=== PATIENT | female | born 1935 | race Caucasian/White ===

== ENCOUNTER 2018-07-06 23:35 | Inpatient (IN) | payer MEDICAID, MEDICARE ==
--- NOTE | 2018-07-06 23:46 | ED Physician Chart ---
ED Chief Complaint/HPI - Patient Information Date Seen:: 07/06/18 Time Seen:: 23:42 Chief Complaint:: coffee ground emesis History of Present Illness:: this is an [age] yr old female sent from the [place] [facility] for evaluation and treatment for a possible upper gi bleed. she has had several bouts of coffee ground emesis today. she is currently Historian:: EMS, Medical Records Review:: Nurse's Note Reviewed ED Review of Systems - Review of Systems General/Constitutional: No fever, No chills, No weight loss, No weakness, No diaphoresis, No edema, No loss of appetite, Other (this patient is not able to give a review of systems) Skin: No skin lesions, No rash, No bruising Head: No headache, No light-headedness Eyes: No loss of vision, No pain, No diplopia ENT: No earache, No nasal drainage, No sore throat, No tinnitus Neck: No neck pain, No swelling, No thyromegaly, No stiffness, No mass noted Cardio Vascular: No chest pain, No palpitations, No PND, No orthopnea, No edema Pulmonary: No SOB, No cough, No sputum, No wheezing GI: No nausea, No vomiting, No diarrhea, No pain, No melena, No hematochezia, No constipation, No hematemesis G/U: No dysuria, No frequency, No hematuria Musculoskeletal: No bone or joint pain, No back pain, No muscle pain Endocrine: No polyuria, No polydipsia Psychiatric: No prior psych history, No depression, No anxiety, No suicidal ideation Hematopoietic: No bruising, No lymphadenopathy Allergic/Immuno: No urticaria, No angioedema Neurological: No syncope, No focal symptoms, No weakness, No paresthesia, No headache, No seizure, No dizziness, No confusion, No vertigo ED Past Medical History - Past Medical History Obtainable: Yes Past Medical History: HTN, CHF, CVA/TIA, Seizures, Other (right breast cancer) Family History: None Social History: Non Smoker, No Alcohol, No Drug Use, Care Facility Surgical History: PEG/GTube, other (right breast surgery, ) Psychiatricy History: Dementia Family Medical History - Family Member Mother History Unknown: Yes ED Physical Exam - Physical Examination General/Constitutional: Awake, Well-developed, well-nourished, Alert, No distress, GCS 15, Non-toxic appearing, Ambulatory Other Gen/Cons comments:: unable to speak because of the trachtube on the ventilator. Head: Atraumatic Eyes: Lids, conjuctiva normal, PERRL, EOMI Skin: Nl inspection, No rash, No skin lesions, No ecchymosis, Well hydrated, No lymphadenopathy ENMT: External ears, nose nl, Nasal exam nl, Lips, teeth, gums nl Neck: Nontender, Full ROM w/o pain, No JVD, No nuchal rigidity, No bruit, No mass, No stridor Other Neck comments:: trach is functioning normally and hooked to the ventilator Respiratory: Nl effort/Exclusion, Clear to Auscultation, No Wheeze/Rhonchi/Rales Cardio Vascular: RRR, No murmur, gallop, rubs, NL S1 S2 Other Cardio Vascular comments:: right breast was removed GI: No tenderness/rebounding/guarding, No organomegaly, No hernia (there is a ventral and umbilical hernia noted.), Normal BS's, Nondistended (the abdomen is distended.), No mass/bruits, No McBurney tenderness : No CVA tenderness Extremities: No tenderness or effusion, Full ROM, normal strength in all extremities, No edema, Normal digits & nails Neuro/Psych: Alert/oriented, DTR's symmetric, Normal sensory exam, Normal motor strength, Judgement/insight normal, Mood normal, Normal gait, No focal deficits Other Neuro/Psych comments:: there is some mild spastic paralysis of the lower extremities. she is confused and fighting at times. Misc: Normal back, No paraspinal tenderness ED Labs/Radiology/EKG Results - Lab Results Results: Abnormal Lab Results 07/06/18 07/06/18 07/06/18 00:20 00:20 00:20 WBC 7.9 RBC 2.98 L Hgb 9.9 L Hct 30.1 L MCV 101.0 H MCH 33.2 H MCHC Differential 32.8 RDW 19.7 Plt Count 388 MPV 8.0 Neutrophils % 89.5 H Lymphocytes % 6.6 L Monocytes % 3.6 Eosinophils % 0.2 Basophils % 0.1 Neutrophils (Manual) 89.5 H Lymphocytes 6.6 L Monocytes 3.6 Eosinophils 0.2 PT 10.2 INR 0.98 PTT (Actin FS) 30.8 Sodium Potassium Chloride Carbon Dioxide Anion Gap BUN Creatinine Est GFR ( Amer) Est GFR (Non-Af Amer) BUN/Creatinine Ratio Glucose Calcium Total Bilirubin AST ALT Alkaline Phosphatase Troponin I Total Protein Albumin Globulin Albumin/Globulin Ratio Triglycerides 133 Cholesterol 122 LDL Cholesterol Direct 53 L HDL Cholesterol 42 TSH Urine Source Urine Color Urine Clarity Urine pH Ur Specific [place] Urine Protein Urine Glucose (UA) Urine Ketones Urine Blood Urine Nitrate Urine Bilirubin Urine Urobilinogen Ur Leukocyte Esterase 07/06/18 07/06/18 07/06/18 00:20 00:20 00:20 WBC RBC Hgb Hct MCV MCH MCHC Differential RDW Plt Count MPV Neutrophils % Lymphocytes % Monocytes % Eosinophils % Basophils % Neutrophils (Manual) Lymphocytes Monocytes Eosinophils PT INR PTT (Actin FS) Sodium 139 Potassium 4.1 Chloride 106 Carbon Dioxide 21.6 Anion Gap 15.5 BUN 28 H Creatinine 1.2 Est GFR ( Amer) TNP Est GFR (Non-Af Amer) TNP BUN/Creatinine Ratio 23.3 Glucose 194 H Calcium 10.6 H Total Bilirubin 0.4 AST 12 L ALT 13 Alkaline Phosphatase 77 Troponin I 0.03 Total Protein 6.3 Albumin 3.8 Globulin 2.5 Albumin/Globulin Ratio 1.5 Triglycerides Cholesterol LDL Cholesterol Direct HDL Cholesterol TSH 2.47 Urine Source Urine Color Urine Clarity Urine pH Ur Specific [place] Urine Protein Urine Glucose (UA) Urine Ketones Urine Blood Urine Nitrate Urine Bilirubin Urine Urobilinogen Ur Leukocyte Esterase 07/07/18 00:30 WBC RBC Hgb Hct MCV MCH MCHC Differential RDW Plt Count MPV Neutrophils % Lymphocytes % Monocytes % Eosinophils % Basophils % Neutrophils (Manual) Lymphocytes Monocytes Eosinophils PT INR PTT (Actin FS) Sodium Potassium Chloride Carbon Dioxide Anion Gap BUN Creatinine Est GFR ( Amer) Est GFR (Non-Af Amer) BUN/Creatinine Ratio Glucose Calcium Total Bilirubin AST ALT Alkaline Phosphatase Troponin I Total Protein Albumin Globulin Albumin/Globulin Ratio Triglycerides Cholesterol LDL Cholesterol Direct HDL Cholesterol TSH Urine Source CATH Urine Color STRAW Urine Clarity CLEAR Urine pH 7.5 Ur Specific [place] 1.020 Urine Protein >=300 Urine Glucose (UA) NEGATIVE Urine Ketones NEGATIVE Urine Blood NEGATIVE Urine Nitrate NEGATIVE Urine Bilirubin NEGATIVE Urine Urobilinogen 0.2 Ur Leukocyte Esterase NEGATIVE - Radiology Results Results: chest x- ray = nad - EKG Interpretations EKG Time:: 00:26 Rate & Rhythm: rate = 98, sinus, apc s noted Woden: left axis ED Assessment - Assessment General Assessment: coffeeground ememsis respiratory failure seizure disorder ED Septic Shock - . Is Septic Shock (SBP<90, OR Lactate>4 mmol\L) present?: No ED Reassessment (Disposition) - Reassessment Reassessment Condition:: Improved - Diagnosis Diagnosis:: upper gi bleed respiratory failure - Patient Disposition Discharge/Transfer:: Acute Care w/in this hosp Admitted to:: ICU Admitting Medical Physician:: Kimberly Chong Condition at Disposition:: Unchanged
[2018-07-07 00:34] LABS: % BASOPHILS 0.1 % (0.0-2.0); % EOSINOPHILS 0.2 % (0.0-5.0); % LYMPHOCYTES 6.6 % (20.0-50.0); % MONOCYTES 3.6 % (2.0-10.0); % NEUTROPHILS 89.5 % (40.0-80.0); HEMATOCRIT 30.1 % (41.0-60); HEMOGLOBIN 9.9 gm/dL (12-16); LYMPHOCYTE ABSOLUTE 0.5 Th/cmm (1.5-3.0); MEAN CORPUSCULAR HEMOGLOBIN 33.2 pg (27.0-31.0); MEAN CORPUSCULAR HGB CONC 32.8 pg (28.0-36.0); MONOCYTE ABSOLUTE 0.3 Th/cmm (0.3-1.0); NEUTROPHILE ABSOLUTE 7.1 Th/cmm (1.8-8.0); PLATELET COUNT 388 Th/cmm (150-400); RED BLOOD COUNT 2.98 Mil/cmm (3.80-5.20); RED CELL DISTRIBUTION WIDTH 19.7 % (11.5-20.0); WHITE BLOOD COUNT 7.9 Th/cmm (4.8-10.8)
[2018-07-07 00:43] LABS: URINE SOURCE CATH
[2018-07-07 00:48] LABS: URINE BILIRUBIN NEGATIVE (NEGATIVE); URINE BLOOD NEGATIVE (NEGATIVE); URINE GLUCOSE (UA) NEGATIVE (NEGATIVE); URINE KETONE NEGATIVE (NEGATIVE); URINE LEUKOCYTE ESTERASE NEGATIVE (NEGATIVE); URINE NITRATE NEGATIVE (NEGATIVE); URINE PH 7.5 (4.6 - 8.0); URINE PROTEIN >=300 mg/dL (NEGATIVE); URINE UROBILINOGEN 0.2 E.U./dL (0.2 - 1.0)
[2018-07-07 00:50] LABS: CHOLESTEROL 122 mg/dL (<200); HDL -HIGH DENSITY LIPOPROTEIN 42 mg/dL (23-92); INR 0.98 (0.5-1.4); PROTHROMBIN TIME (TEST) 10.2 SECONDS (9.5-11.5); TRIGLYCERIDES 133 mg/dL (<150)
[2018-07-07] MEDS ORDERED: Sodium Chloride 0.9% 1,000 ML IV ONE (00:50)
[2018-07-07 00:52] LABS: ALB/GLOB RATIO 1.5 (1.0-1.8); ALBUMIN 3.8 gm/dL (3.7-5.3); ALKALINE PHOSPHATASE 77 U/L (34-104); ANION GAP 15.5 (7.0-16.0); BILIRUBIN,TOTAL 0.4 mg/dL (0.3-1.0); BUN - UREA NITROGEN 28 mg/dL (7-25); CALCIUM SERUM 10.6 mg/dL (8.6-10.3); CARBON DIOXIDE 21.6 mEq/L (21.0-31.0); CHLORIDE 106 mEq/L (98-107); CREATININE - SERUM 1.2 mg/dL (0.6-1.2); GLUCOSE 194 mg/dL (70-105); POTASSIUM SERUM 4.1 mEq/L (3.5-5.1); SGOT 12 U/L (13-39); SGPT/ALT 13 U/L (7-52); SODIUM SERUM 139 mEq/L (136-145); TOTAL PROTEIN,SERUM 6.3 gm/dL (6.0-8.3)
[2018-07-07 01:11] LABS: URINE COLOR STRAW
[2018-07-07 01:12] LABS: URINE CLARITY CLEAR (CLEAR); URINE MICROSCOPIC INDICATED? NO
[2018-07-07 02:01] LABS: EOSINOPHIL 0.2 % (0-5); LYMPHOCYTE 6.6 % (20-50); MONOCYTE 3.6 % (2-10); NEUTROPHILS 89.5 % (40-80)
[2018-07-07] MEDS: Sodium Chloride 0.9% 1,000 ML IV SCH ×2 (03:05→15:24)
[2018-07-07 05:25] LABS: % BASOPHILS 0.8 % (0.0-2.0); % EOSINOPHILS 0.2 % (0.0-5.0); % LYMPHOCYTES 6.4 % (20.0-50.0); % MONOCYTES 9.1 % (2.0-10.0); % NEUTROPHILS 83.5 % (40.0-80.0); HEMATOCRIT 26.7 % (41.0-60); HEMOGLOBIN 8.9 gm/dL (12-16); LYMPHOCYTE ABSOLUTE 0.4 Th/cmm (1.5-3.0); MEAN CELL VOLUME 101.4 fl (81-100); MEAN CORPUSCULAR HGB CONC 33.5 pg (28.0-36.0); MEAN PLATELET VOLUME 7.5 fl; MONOCYTE ABSOLUTE 0.6 Th/cmm (0.3-1.0); NEUTROPHILE ABSOLUTE 5.1 Th/cmm (1.8-8.0); PLATELET COUNT 307 Th/cmm (150-400); RED BLOOD COUNT 2.63 Mil/cmm (3.80-5.20); RED CELL DISTRIBUTION WIDTH 19.7 % (11.5-20.0); WHITE BLOOD COUNT 6.1 Th/cmm (4.8-10.8)
[2018-07-07 05:58] LABS: ALB/GLOB RATIO 1.5 (1.0-1.8); ALBUMIN 3.4 gm/dL (3.7-5.3); ALKALINE PHOSPHATASE 65 U/L (34-104); ANION GAP 13.4 (7.0-16.0); BILIRUBIN,TOTAL 0.4 mg/dL (0.3-1.0); BUN - UREA NITROGEN 32 mg/dL (7-25); CALCIUM SERUM 10.2 mg/dL (8.6-10.3); CARBON DIOXIDE 23.1 mEq/L (21.0-31.0); CHLORIDE 109 mEq/L (98-107); CREATININE - SERUM 1.2 mg/dL (0.6-1.2); GLUCOSE 151 mg/dL (70-105); POTASSIUM SERUM 4.5 mEq/L (3.5-5.1); SGOT 10 U/L (13-39); SGPT/ALT 12 U/L (7-52); SODIUM SERUM 141 mEq/L (136-145); TOTAL PROTEIN,SERUM 5.7 gm/dL (6.0-8.3)
[2018-07-07 06:11] LABS: NEUTROPHILS 80 % (40-80)
[2018-07-07 06:12] LABS: BAND NEUTROPHILE 5 % (0-10); LYMPHOCYTE 10 % (20-50); MONOCYTE 5 % (2-10)
[2018-07-07 08:48] LABS: PaCO2 33.7 mmHg (35.0-45.0); PaO2 69.7 mmHg (80.0-100.0); pH 7.473 (7.35-7.45)
[2018-07-07 08:49] LABS: sO2c 95.1 % (92.0-100.0)
[2018-07-07 08:50] LABS: ALLEN TEST Positive
[2018-07-07] MEDS: Pantoprazole 80 MG in Sodium Chloride 0.9% 100 ML IV SCH ×2 (09:10→18:46)
--- NOTE | 2018-07-07 09:37 | Diagnostic Imaging Report ---
Exam: Portable chest x-ray HISTORY: Pain Prior exam: None Findings: Portable examination of the chest at 0044 hours reviewed. The study demonstrates tracheostomy tube midline. The heart is prominent. No acute pulmonic great noted bony thorax is intact. As a question of mild congestion. IMPRESSION: no acute disease, question of mild congestion.
--- NOTE | 2018-07-07 13:03 | History & Physical ---
ADMIT DATE: 07/07/2018 HISTORY OF PRESENT ILLNESS: This is an 80-year-old female patient who was well known to me. The patient is known to have severe dementia. The [facility] a [facility]. The patient apparently had several episodes of vomiting and coffee-ground, was seen in the Emergency Room, was admitted for possible GI bleeding. The patient had no fever, no chills, no rigors, no chest pain. PAST MEDICAL HISTORY: History of hypertension, CHF, CVA, seizures, and history of right breast cancer. PHYSICAL EXAMINATION: HEAD: Normal. ENT: Normal. NECK: Supple, nontender. LUNGS: Clear. CARDIOVASCULAR SYSTEM: S1, S2 heard. ABDOMEN: Soft. Bowel sounds are heard. EXTREMITIES: Revealed arthritis. CENTRAL NERVOUS SYSTEM: Grossly normal. LABORATORY DATA: Hemoglobin was 9.9. DIAGNOSES: Acute upper gastrointestinal bleed and possible acute upper GI bleeding, rule out gastritis, rule out ulcer, history of respiratory failure, history of seizure disorder, history of congestive heart failure, history of cerebrovascular accident, history of arthritis. PLAN: The patient has been admitted to ICU and GI doctor see the patient. I will follow the patient. JOB# [id number]
[2018-07-07] MEDS: Diltiazem 30 mg Tab GT SCH (19:44)
--- NOTE | 2018-07-07 20:03 | Consultation ---
DATE OF CONSULTATION: 07/07/2018 REASON FOR CONSULT: GI bleed. HISTORY OF PRESENT ILLNESS: This consult was obtained through the courtesy of Dr. Chong for this 82-year-old with history of hypertension, CVA, congestive heart failure, seizure disorder, dementia, was admitted to the hospital for several bouts of GI bleed in the form of coffee-ground emesis. The patient is on a vent, unable to give any history. The patient was found to have low hemoglobin as well. PAST MEDICAL HISTORY: Hypertension, CHF, CVA, seizure. PAST SURGICAL HISTORY: She had abdominal surgery, nature of which is not known. She has a tracheostomy. She has a G-tube. Breast surgery. SOCIAL HISTORY: At this time, the patient is a nonsmoker, nonalcoholic, non-IV drug abuser. FAMILY HISTORY: Noncontributory. ALLERGIES: CHLORPROMAZINE. MEDICATIONS: The patient is on Apresoline, Ativan, Zofran, Protonix drip. REVIEW OF SYSTEMS: Unobtainable. PHYSICAL EXAMINATION: GENERAL: The patient is intubated, nonresponsive. VITAL SIGNS: Blood pressure is 123/54, heart rate 87, respiratory rate is 16, and temperature is 98.7. HEAD AND NECK: Pupils reactive to light. Extraocular muscles could not be tested. Oral cavity, no lesion. NECK: Showed there is an ET tube. CHEST: Good air entry. LUNGS: Showed few rhonchi. CARDIOVASCULAR SYSTEM: Showed regular rate and rhythm. No murmur or gallop. ABDOMEN: Soft, obese, positive bowel sounds. There is a G-tube in place. There is a scar in the midline with ventral hernia. EXTREMITIES: Lower extremities, no edema. CENTRAL NERVOUS SYSTEM: Seems lower extremities are flaccid-like extremities with some twitches. LABORATORY AND DIAGNOSTIC DATA: White count 6.1, H and H 8.9 and 26.7, platelet count 307, RDW is 19.7. PT is normal. Chemistry showed BNP of 1210. Liver enzymes were normal. No imaging. IMPRESSION: An 82-year-old with multiple medical problems, now with coffee-ground emesis. ASSESSMENT AND PLAN: Coffee-ground emesis, rule out peptic ulcer disease versus erosive esophagitis versus gastritis. Given that the patient has a G-tube, it is unlikely to be upper GI malignancy. RECOMMENDATIONS: 1. Continue with Protonix drip. 2. Continue to monitor H and H and transfuse if needed. 3. Try to obtain any records if available. 4. If the patient continues to vomit coffee-ground material or having coming out from the G-tube, then we will do an endoscopy in the morning. Otherwise, might wait a day or two to improve her respiratory status and her congestive heart failure status before doing any endoscopy. Other medical problems such as hypertension, CHF, CVA, etc., as per Dr. Chong. Thank you, Dr. Chong for allowing me to participate in the care of this patient. If you have any further questions, please let me know. JOB# [id number]
[2018-07-07 22:14] VITALS: BP 167/69
--- NOTE | 2018-07-08 02:50 | Consultation ---
DATE OF CONSULTATION: 07/07/2018 REFERRING PHYSICIAN: Dr. Chong Thank you very much Dr. Chong for this consultation. This is an 82-year-old female who has history of chronic respiratory failure, presented with nausea and vomiting and was found to have ileus and G-tube placed to suctions, large volume aspirate and the patient appears to be comfortable on the ventilator, was seen before by myself in [facility] for pneumonia, sepsis, chronic respiratory failure, COPD. The patient unable to give any further history. PHYSICAL EXAMINATION: VITAL SIGNS: Temperature 99.1, pulse 100, respirations 16, blood pressure 131/64, saturation is 95%. HEENT: Atraumatic and normocephalic. Pupils react to light and accommodation. Ears, nose and throat normal. NECK: Supple. No JVD. CHEST: There are few rhonchi bilaterally. HEART: Regular rate and rhythm. ABDOMEN: Soft and nondistended. EXTREMITIES: There is no edema. LABORATORY AND DIAGNOSTIC DATA: WBC 6.1, hemoglobin 8.9 and platelets 307. ABG: PH 7.43, pCO2 of 33, pO2 69, bicarb 24. Sodium 141, potassium 4.5, BUN 32, creatinine 1.2. Chest x-ray shows no acute infiltrate, minimal effusion in the left base. IMPRESSION: 1. Respiratory failure, chronic. 2. Ileus. 3. Bowel obstruction. 4. Weakness. 5. GI evaluation. 6. CT abdomen. PLAN: 1. Ventilator support. 2. GI followup and evaluation and supportive care. Titrate FiO2. Thank you very much for this consultation. We will follow the patient with you. JOB# [id number]
[2018-07-08] MEDS: Diltiazem 30 mg Tab GT SCH ×3 (04:00→18:34)
[2018-07-08] MEDS: Pantoprazole 80 MG in Sodium Chloride 0.9% 100 ML IV SCH ×2 (04:18→16:47)
[2018-07-08] MEDS: Sodium Chloride 0.9% 1,000 ML IV SCH (04:26)
[2018-07-08 04:36] LABS: % BASOPHILS 0.6 % (0.0-2.0); % LYMPHOCYTES 11.9 % (20.0-50.0); % MONOCYTES 7.7 % (2.0-10.0); % NEUTROPHILS 77.8 % (40.0-80.0); EOSINOPHILE ABSOLUTE 0.2 Th/cmm (0.1-0.4); HEMATOCRIT 23.1 % (41.0-60); MEAN CELL VOLUME 101.5 fl (81-100); MEAN CORPUSCULAR HGB CONC 32.5 pg (28.0-36.0); MEAN PLATELET VOLUME 8.2 fl; MONOCYTE ABSOLUTE 0.6 Th/cmm (0.3-1.0); NEUTROPHILE ABSOLUTE 6.4 Th/cmm (1.8-8.0); PLATELET COUNT 251 Th/cmm (150-400); RED BLOOD COUNT 2.28 Mil/cmm (3.80-5.20); RED CELL DISTRIBUTION WIDTH 20.7 % (11.5-20.0); WHITE BLOOD COUNT 8.2 Th/cmm (4.8-10.8)
[2018-07-08 04:59] LABS: INR 1.17 (0.5-1.4); PROTHROMBIN TIME (TEST) 12.1 SECONDS (9.5-11.5)
[2018-07-08 05:06] LABS: HEMOGLOBIN 7.5 gm/dL (12-16)
[2018-07-08 05:17] LABS: ALB/GLOB RATIO 1.3 (1.0-1.8); ALBUMIN 2.9 gm/dL (3.7-5.3); ALKALINE PHOSPHATASE 52 U/L (34-104); BILIRUBIN,TOTAL 0.4 mg/dL (0.3-1.0); BUN - UREA NITROGEN 35 mg/dL (7-25); CALCIUM SERUM 9.4 mg/dL (8.6-10.3); CARBON DIOXIDE 25.2 mEq/L (21.0-31.0); CHLORIDE 112 mEq/L (98-107); CREATININE - SERUM 1.7 mg/dL (0.6-1.2); GLUCOSE 109 mg/dL (70-105); POTASSIUM SERUM 4.2 mEq/L (3.5-5.1); SGOT 8 U/L (13-39); SGPT/ALT 9 U/L (7-52); SODIUM SERUM 146 mEq/L (136-145); TOTAL PROTEIN,SERUM 5.1 gm/dL (6.0-8.3)
[2018-07-08] MEDS ORDERED: Non-Formulary Item 1 EA (Levothyroxine Sodium [Levothyroxine Sodium] 150 MCG) GT SCH (07:30)
--- NOTE | 2018-07-08 08:01 | Diagnostic Imaging Report ---
KUB abdominal film HISTORY: Abdominal distention There is a nonspecific gas pattern of nondilated bowel. No free intraperitoneal air. Catheter tubing noted over the left abdomen. Surgical clip seen in the pelvis. Severe degenerative changes noted throughout the spine. IMPRESSION: 1. Nonspecific bowel gas pattern
[2018-07-08 08:08] LABS: IRON LC 22 ug/dL (27-139); TIBC (LC) 223 ug/dL (250-450); UIBC 201 ug/dL (118-369)
--- NOTE | 2018-07-08 10:30 | Internal Medicine Prog Note ---
Internal Medicine Subjective - Subjective Service Date: 07/08/18 Patient seen and examined:: with staff, chart reviewed Patient is:: awake, congested Patient Complaints of:: other (upper GI bleed, was vomitting.) Per staff patient has:: no adverse event, no episodes of fall Internal Medicine Objective - Results Result Diagrams: 07/08/18 04:05 07/08/18 04:05 Recent Labs: Laboratory Last Values WBC 8.2 Th/cmm (4.8-10.8) D 07/08/18 04:05 RBC 2.28 Mil/cmm (3.80-5.20) L 07/08/18 04:05 Hgb 7.5 gm/dL (12-16) L* 07/08/18 04:05 Hct 23.1 % (41.0-60) L 07/08/18 04:05 MCV 101.5 fl (81-100) H 07/08/18 04:05 MCH 33.0 pg (27.0-31.0) H 07/08/18 04:05 MCHC Differential 32.5 pg (28.0-36.0) 07/08/18 04:05 RDW 20.7 % (11.5-20.0) H 07/08/18 04:05 Plt Count 251 Th/cmm (150-400) 07/08/18 04:05 MPV 8.2 fl 07/08/18 04:05 Neutrophils % 77.8 % (40.0-80.0) 07/08/18 04:05 Band Neutrophils % 5 % (0-10) 07/07/18 05:00 Lymphocytes % 11.9 % (20.0-50.0) L 07/08/18 04:05 Monocytes % 7.7 % (2.0-10.0) 07/08/18 04:05 Eosinophils % 2.0 % (0.0-5.0) 07/08/18 04:05 Basophils % 0.6 % (0.0-2.0) 07/08/18 04:05 Neutrophils (Manual) 80 % (40-80) 07/07/18 05:00 Lymphocytes 10 % (20-50) L 07/07/18 05:00 Monocytes 5 % (2-10) 07/07/18 05:00 Eosinophils 0.2 % (0-5) 07/06/18 00:20 PT 12.1 SECONDS (9.5-11.5) H 07/08/18 04:05 INR 1.17 (0.5-1.4) 07/08/18 04:05 PTT (Actin FS) 30.8 SECONDS (26.0-38.0) 07/06/18 00:20 Specimen Source Arterial 07/07/18 08:28 Sample Site Right Radial 07/07/18 08:28 pH 7.473 (7.35-7.45) H 07/07/18 08:28 pCO2 33.7 mmHg (35.0-45.0) L 07/07/18 08:28 pO2 69.7 mmHg (80.0-100.0) L 07/07/18 08:28 HCO3 24.1 mEq/L (20.0-26.0) 07/07/18 08:28 Base Excess 1.2 mEq/L (-3.0-3.0) 07/07/18 08:28 O2 Saturation 95.1 % (92.0-100.0) 07/07/18 08:28 Josue Test Positive 07/07/18 08:28 Vent Rate 16 07/07/18 08:28 Inspired O2 30 07/07/18 08:28 Tidal Volume 550 07/07/18 08:28 PEEP 5 07/07/18 08:28 Pressure (ins/psv/peep) N/A 07/07/18 08:28 Critical Value DM 07/07/18 08:28 Sodium 146 mEq/L (136-145) H 07/08/18 04:05 Potassium 4.2 mEq/L (3.5-5.1) 07/08/18 04:05 Chloride 112 mEq/L (98-107) H 07/08/18 04:05 Carbon Dioxide 25.2 mEq/L (21.0-31.0) 07/08/18 04:05 Anion Gap 13.0 (7.0-16.0) 07/08/18 04:05 BUN 35 mg/dL (7-25) H 07/08/18 04:05 Creatinine 1.7 mg/dL (0.6-1.2) H 07/08/18 04:05 Est GFR ( Amer) TNP 07/08/18 04:05 Est GFR (Non-Af Amer) TNP 07/08/18 04:05 BUN/Creatinine Ratio 20.6 07/08/18 04:05 Glucose 109 mg/dL (70-105) H 07/08/18 04:05 Calcium 9.4 mg/dL (8.6-10.3) 07/08/18 04:05 Iron 22 ug/dL (27-139) L 07/06/18 00:20 TIBC 223 ug/dL (250-450) L 07/06/18 00:20 Iron Saturation 10 % (15-55) L 07/06/18 00:20 Unsaturated IBC 201 ug/dL (118-369) 07/06/18 00:20 Total Bilirubin 0.4 mg/dL (0.3-1.0) 07/08/18 04:05 AST 8 U/L (13-39) L 07/08/18 04:05 ALT 9 U/L (7-52) 07/08/18 04:05 Alkaline Phosphatase 52 U/L (34-104) 07/08/18 04:05 Troponin I 0.03 ng/mL (0.01-0.05) 07/06/18 00:20 B-Natriuretic Peptide 1210.0 pg/mL (5.0-100.0) H 07/06/18 00:20 Total Protein 5.1 gm/dL (6.0-8.3) L 07/08/18 04:05 Albumin 2.9 gm/dL (3.7-5.3) L 07/08/18 04:05 Globulin 2.2 gm/dL 07/08/18 04:05 Albumin/Globulin Ratio 1.3 (1.0-1.8) 07/08/18 04:05 Triglycerides 133 mg/dL (<150) 07/06/18 00:20 Cholesterol 122 mg/dL (<200) 07/06/18 00:20 LDL Cholesterol Direct 53 mg/dL (75-193) L 07/06/18 00:20 HDL Cholesterol 42 mg/dL (23-92) 07/06/18 00:20 TSH 2.47 uIU/ml (0.34-5.60) 07/06/18 00:20 Urine Source CATH 07/07/18 00:30 Urine Color STRAW 07/07/18 00:30 Urine Clarity CLEAR (CLEAR) 07/07/18 00:30 Urine pH 7.5 (4.6 - 8.0) 07/07/18 00:30 Ur Specific [place] 1.020 (1.005-1.030) 07/07/18 00:30 Urine Protein >=300 mg/dL (NEGATIVE) 07/07/18 00:30 Urine Glucose (UA) NEGATIVE mg/dL (NEGATIVE) 07/07/18 00:30 Urine Ketones NEGATIVE mg/dL (NEGATIVE) 07/07/18 00:30 Urine Blood NEGATIVE (NEGATIVE) 07/07/18 00:30 Urine Nitrate NEGATIVE (NEGATIVE) 07/07/18 00:30 Urine Bilirubin NEGATIVE (NEGATIVE) 07/07/18 00:30 Urine Urobilinogen 0.2 E.U./dL (0.2 - 1.0) 07/07/18 00:30 Ur Leukocyte Esterase NEGATIVE (NEGATIVE) 07/07/18 00:30 Blood Type A NEGATIVE 07/08/18 08:40 Antibody Screen NEGATIVE 07/08/18 08:40 Crossmatch See Detail 07/08/18 08:40 - Physical Exam Vitals and I&O: Vital Signs Temp 98.6 F 07/08/18 08:00 Pulse 74 07/08/18 09:29 Resp 18 07/08/18 09:00 BP 146/66 07/08/18 09:00 Pulse Ox 96 07/08/18 09:29 Intake & Output 07/07/18 07/08/18 07/08/18 18:59 06:59 18:59 Intake Total 1019.75 1072.833 Output Total 2125 1550 Balance -1105.25 -477.167 Weight (lbs) 82.554 kg 82.372 kg Intake: Intake, IV Amount 1019.75 1072.833 Pantoprazole 80 mg In 96 95.333 Sodium Chloride 0.9% 100 ml @ 10 mls/hr IV Q10H [facility] Rx#:[id number] Sodium Chloride 0.9% 1, 923.75 977.5 000 ml @ 75 mls/hr IV . [id number] [facility] Rx#:[id number] Output: Gastric Drainage 1200 600 Urine 525 800 Stool 150 Emesis 400 Other: # Bowel Movements 1 0 Stool Characteristics Soft Formed Weight Source Estimated Bedscale Active Medications: Current Medications Acetaminophen (Tylenol) 325 mg GT Q4HR PRN PRN Reason: Pain or Fever >101 Stop: 09/05/18 19:00 Last Admin: 07/07/18 19:43 Dose: 325 mg Diltiazem HCl (Cardizem) 30 mg GT Q8H [facility] Stop: 09/05/18 19:14 Last Admin: 07/08/18 04:00 Dose: 30 mg Hydralazine HCl (Apresoline 20 Mg/Ml) 10 mg IV Q4HR PRN PRN Reason: SBP >150 MMHG Stop: 09/05/18 07:48 Sodium Chloride (Nacl 0.9%) 1,000 mls @ 75 mls/hr IV .[id number] [facility] Stop: 09/05/18 02:23 Last Admin: 07/08/18 04:26 Dose: 75 mls/hr Pantoprazole Sodium 80 mg/ (Sodium Chloride) 100 mls @ 10 mls/hr IV Q10H [facility] Stop: 09/05/18 08:59 Last Admin: 07/08/18 04:18 Dose: 10 mls/hr Levetiracetam (Keppra) 500 mg PO Q12H [facility] Stop: 09/05/18 19:14 Last Admin: 07/08/18 06:52 Dose: 500 mg Levothyroxine Sodium 0.1 mg/ (Levothyroxine Sodium 0.05 mg) 0.15 mg PO QDAC [facility] Stop: 09/06/18 07:29 Last Admin: 07/08/18 06:52 Dose: 0.15 mg Lorazepam (Ativan) 1 mg IVP Q4HR PRN; Protocol PRN Reason: Agitation Stop: 09/05/18 07:47 Ondansetron HCl (Zofran) 4 mg IV Q6HR PRN PRN Reason: Vomiting Stop: 09/05/18 02:27 Last Admin: 07/07/18 06:48 Dose: 4 mg Physical Exam: Patient has dementia, had a GI bleed and low hemoglobin. General: weak, demented HEENT: NC/AT Neck: Supple, No JVD Lungs: CTAB Cardiovascular: RRR Abdomen: soft, non-tender Extremities: clear Neurological: no change - Procedures Procedures: Procedures Procedure Code Date RESPIRATORY VENTILATION, 24-96 CONSECUTIVE HOURS [id number] 07/07/18 Internal Medicine Assmt/Plan - Assessment Assessment: Acute GI bleed. Anemia. Ileus. R/o Gastritis. Severe Dementia. Hx of Respiratory failure. Hx of Seizures. Hx of CHF. Hx of CAD. Hx of Right breast cancer. Arthritis. - Plan Plan: Continuation of care. Monitor Vitals and Labs- CBC, CMP, Monitor Hemoglobin levels. Continue present meds as directed. Monitor Diet/Nutritional support. Monitor mental status progression. Monitor behavioral health status. Pain Management. Physical therapy. Occupational therapy. Safety precaution. Supportive care. Seizure precaution. Fall precaution, frequent nursing rounds, and as needed restraints to prevent fall. Continue collaborating with consulting specialists, case management and nursing team. Will Monitor patient and continue current treatment plan as ordered. Nutritional Asmnt/Malnutr-PDOC - Dietary Evaluation Malnutrition Findings (Please click <Entered> for more info): see orders.
--- NOTE | 2018-07-08 11:05 | GI Progress Note ---
Subjective - Review of Systems Service Date: 07/08/18 Events since last encounter: still with lower H/h Subjective: Non verbal Objective - Results Result Diagrams: 07/08/18 04:05 07/08/18 04:05 Recent Labs: Laboratory Last Values WBC 8.2 Th/cmm (4.8-10.8) D 07/08/18 04:05 RBC 2.28 Mil/cmm (3.80-5.20) L 07/08/18 04:05 Hgb 7.5 gm/dL (12-16) L* 07/08/18 04:05 Hct 23.1 % (41.0-60) L 07/08/18 04:05 MCV 101.5 fl (81-100) H 07/08/18 04:05 MCH 33.0 pg (27.0-31.0) H 07/08/18 04:05 MCHC Differential 32.5 pg (28.0-36.0) 07/08/18 04:05 RDW 20.7 % (11.5-20.0) H 07/08/18 04:05 Plt Count 251 Th/cmm (150-400) 07/08/18 04:05 MPV 8.2 fl 07/08/18 04:05 Neutrophils % 77.8 % (40.0-80.0) 07/08/18 04:05 Band Neutrophils % 5 % (0-10) 07/07/18 05:00 Lymphocytes % 11.9 % (20.0-50.0) L 07/08/18 04:05 Monocytes % 7.7 % (2.0-10.0) 07/08/18 04:05 Eosinophils % 2.0 % (0.0-5.0) 07/08/18 04:05 Basophils % 0.6 % (0.0-2.0) 07/08/18 04:05 Neutrophils (Manual) 80 % (40-80) 07/07/18 05:00 Lymphocytes 10 % (20-50) L 07/07/18 05:00 Monocytes 5 % (2-10) 07/07/18 05:00 Eosinophils 0.2 % (0-5) 07/06/18 00:20 PT 12.1 SECONDS (9.5-11.5) H 07/08/18 04:05 INR 1.17 (0.5-1.4) 07/08/18 04:05 PTT (Actin FS) 30.8 SECONDS (26.0-38.0) 07/06/18 00:20 Specimen Source Arterial 07/07/18 08:28 Sample Site Right Radial 07/07/18 08:28 pH 7.473 (7.35-7.45) H 07/07/18 08:28 pCO2 33.7 mmHg (35.0-45.0) L 07/07/18 08:28 pO2 69.7 mmHg (80.0-100.0) L 07/07/18 08:28 HCO3 24.1 mEq/L (20.0-26.0) 07/07/18 08:28 Base Excess 1.2 mEq/L (-3.0-3.0) 07/07/18 08:28 O2 Saturation 95.1 % (92.0-100.0) 07/07/18 08:28 Josue Test Positive 07/07/18 08:28 Vent Rate 16 07/07/18 08:28 Inspired O2 30 07/07/18 08:28 Tidal Volume 550 07/07/18 08:28 PEEP 5 07/07/18 08:28 Pressure (ins/psv/peep) N/A 07/07/18 08:28 Critical Value DM 07/07/18 08:28 Sodium 146 mEq/L (136-145) H 07/08/18 04:05 Potassium 4.2 mEq/L (3.5-5.1) 07/08/18 04:05 Chloride 112 mEq/L (98-107) H 07/08/18 04:05 Carbon Dioxide 25.2 mEq/L (21.0-31.0) 07/08/18 04:05 Anion Gap 13.0 (7.0-16.0) 07/08/18 04:05 BUN 35 mg/dL (7-25) H 07/08/18 04:05 Creatinine 1.7 mg/dL (0.6-1.2) H 07/08/18 04:05 Est GFR ( Amer) TNP 07/08/18 04:05 Est GFR (Non-Af Amer) TNP 07/08/18 04:05 BUN/Creatinine Ratio 20.6 07/08/18 04:05 Glucose 109 mg/dL (70-105) H 07/08/18 04:05 Calcium 9.4 mg/dL (8.6-10.3) 07/08/18 04:05 Iron 22 ug/dL (27-139) L 07/06/18 00:20 TIBC 223 ug/dL (250-450) L 07/06/18 00:20 Iron Saturation 10 % (15-55) L 07/06/18 00:20 Unsaturated IBC 201 ug/dL (118-369) 07/06/18 00:20 Total Bilirubin 0.4 mg/dL (0.3-1.0) 07/08/18 04:05 AST 8 U/L (13-39) L 07/08/18 04:05 ALT 9 U/L (7-52) 07/08/18 04:05 Alkaline Phosphatase 52 U/L (34-104) 07/08/18 04:05 Troponin I 0.03 ng/mL (0.01-0.05) 07/06/18 00:20 B-Natriuretic Peptide 1210.0 pg/mL (5.0-100.0) H 07/06/18 00:20 Total Protein 5.1 gm/dL (6.0-8.3) L 07/08/18 04:05 Albumin 2.9 gm/dL (3.7-5.3) L 07/08/18 04:05 Globulin 2.2 gm/dL 07/08/18 04:05 Albumin/Globulin Ratio 1.3 (1.0-1.8) 07/08/18 04:05 Triglycerides 133 mg/dL (<150) 07/06/18 00:20 Cholesterol 122 mg/dL (<200) 07/06/18 00:20 LDL Cholesterol Direct 53 mg/dL (75-193) L 07/06/18 00:20 HDL Cholesterol 42 mg/dL (23-92) 07/06/18 00:20 TSH 2.47 uIU/ml (0.34-5.60) 07/06/18 00:20 Urine Source CATH 07/07/18 00:30 Urine Color STRAW 07/07/18 00:30 Urine Clarity CLEAR (CLEAR) 07/07/18 00:30 Urine pH 7.5 (4.6 - 8.0) 07/07/18 00:30 Ur Specific [place] 1.020 (1.005-1.030) 07/07/18 00:30 Urine Protein >=300 mg/dL (NEGATIVE) 07/07/18 00:30 Urine Glucose (UA) NEGATIVE mg/dL (NEGATIVE) 07/07/18 00:30 Urine Ketones NEGATIVE mg/dL (NEGATIVE) 07/07/18 00:30 Urine Blood NEGATIVE (NEGATIVE) 07/07/18 00:30 Urine Nitrate NEGATIVE (NEGATIVE) 07/07/18 00:30 Urine Bilirubin NEGATIVE (NEGATIVE) 07/07/18 00:30 Urine Urobilinogen 0.2 E.U./dL (0.2 - 1.0) 07/07/18 00:30 Ur Leukocyte Esterase NEGATIVE (NEGATIVE) 07/07/18 00:30 Blood Type A NEGATIVE 07/08/18 08:40 Antibody Screen NEGATIVE 07/08/18 08:40 Crossmatch See Detail 07/08/18 08:40 - Physical Exam Vitals and I&O: Vital Signs Temp 98.6 F 07/08/18 10:00 Pulse 72 07/08/18 10:00 Resp 18 07/08/18 10:00 BP 139/60 07/08/18 10:00 Pulse Ox 100 07/08/18 10:00 Intake & Output 07/07/18 07/08/18 07/08/18 18:59 06:59 18:59 Intake Total 1019.75 1072.833 Output Total 2125 1550 Balance -1105.25 -477.167 Weight (lbs) 82.554 kg 82.372 kg Intake: Intake, IV Amount 1019.75 1072.833 Pantoprazole 80 mg In 96 95.333 Sodium Chloride 0.9% 100 ml @ 10 mls/hr IV Q10H [facility] Rx#:[id number] Sodium Chloride 0.9% 1, 923.75 977.5 000 ml @ 75 mls/hr IV . [id number] [facility] Rx#:[id number] Output: Gastric Drainage 1200 600 Urine 525 800 Stool 150 Emesis 400 Other: # Bowel Movements 1 0 Stool Characteristics Soft Formed Weight Source Estimated Bedscale Active Medications: Current Medications Acetaminophen (Tylenol) 325 mg GT Q4HR PRN PRN Reason: Pain or Fever >101 Stop: 09/05/18 19:00 Last Admin: 07/07/18 19:43 Dose: 325 mg Diltiazem HCl (Cardizem) 30 mg GT Q8H [facility] Stop: 09/05/18 19:14 Last Admin: 07/08/18 04:00 Dose: 30 mg Hydralazine HCl (Apresoline 20 Mg/Ml) 10 mg IV Q4HR PRN PRN Reason: SBP >150 MMHG Stop: 09/05/18 07:48 Sodium Chloride (Nacl 0.9%) 1,000 mls @ 75 mls/hr IV .[id number] [facility] Stop: 09/05/18 02:23 Last Admin: 07/08/18 04:26 Dose: 75 mls/hr Pantoprazole Sodium 80 mg/ (Sodium Chloride) 100 mls @ 10 mls/hr IV Q10H [facility] Stop: 09/05/18 08:59 Last Admin: 07/08/18 04:18 Dose: 10 mls/hr Levetiracetam (Keppra) 500 mg PO Q12H [facility] Stop: 09/05/18 19:14 Last Admin: 07/08/18 06:52 Dose: 500 mg Levothyroxine Sodium 0.1 mg/ (Levothyroxine Sodium 0.05 mg) 0.15 mg PO QDAC [facility] Stop: 09/06/18 07:29 Last Admin: 07/08/18 06:52 Dose: 0.15 mg Lorazepam (Ativan) 1 mg IVP Q4HR PRN; Protocol PRN Reason: Agitation Stop: 09/05/18 07:47 Ondansetron HCl (Zofran) 4 mg IV Q6HR PRN PRN Reason: Vomiting Stop: 09/05/18 02:27 Last Admin: 07/07/18 06:48 Dose: 4 mg Cardiovascular: Regular rate, Normal S1, Normal S2 Lungs: Other (Rhonchi) Abdomen: Bowel sounds, Soft, no Tender - Procedures Procedures: Procedures Procedure Code Date RESPIRATORY VENTILATION, 24-96 CONSECUTIVE HOURS [id number] 07/07/18 Assessment/Plan - Assessment Assessment: GI Bleeding Dysphagia - Plan Plan: 1. GI Bleeding PPI Trransfuse EGD when consent is available Dysphagia Feeding on hold pending EGD and control of bleeding
[2018-07-08] MEDS: D5-0.45NS 1,000 ML IV SCH (13:42)
--- NOTE | 2018-07-08 14:00 | Diagnostic Imaging Report ---
Portable chest x-ray HISTORY: Shortness of breath, vascular catheter placement Compared to prior exam of July 07, 2018, a left-sided vascular catheter has been inserted. The tip appears situated within the superior vena cava near the junction with the left brachiocephalic vein. Compared with the prior exam, increased density is noted in the left lower hemithorax. Findings may be associated with a pleural effusion. Underlying pneumonia cannot be excluded. IMPRESSION: 1. New vascular catheter placement as noted above 2. Increased density within the left lower hemithorax which may be associated with pleural fluid. Underlying pneumonia cannot be excluded. Clinical correlation is needed.
[2018-07-08] MEDS: Levofloxacin 250mg/50mL 250 MG/50 ML BAG IV SCH (20:27)
[2018-07-09] MEDS: D5-0.45NS 1,000 ML IV SCH ×2 (03:03→15:43)
[2018-07-09] MEDS: Pantoprazole 80 MG in Sodium Chloride 0.9% 100 ML IV SCH ×3 (03:05→23:21)
[2018-07-09] MEDS: Diltiazem 30 mg Tab GT SCH ×3 (03:09→18:22)
--- NOTE | 2018-07-09 05:21 | Progress Notes ---
DATE: 07/08/2018 SUBJECTIVE: The patient appears to be doing okay. No distress, congested on and off with some secretions. OBJECTIVE: VITAL SIGNS: Temperature 98.9, pulse 77, respiration 18, blood pressure 122/50, saturation 100%. CHEST: Good breath sounds. No wheezing, few rhonchi. HEART: Regular rate and rhythm. ABDOMEN: Soft. EXTREMITIES: No edema. LABORATORY DATA: WBC is 8.2, hemoglobin 7.5, hematocrit 23.1, platelets 251. Sodium 146, potassium 4.2, BUN 35, and creatinine 1.7. IMPRESSION: 1. Respiratory failure. 2. Pneumonia. 3. Dysphagia. 4. Weakness. 5. Chronic obstructive pulmonary disease. PLAN: 1. Continue nebulized treatment. 2. Antibiotics. 3. Pulmonary toilet, supportive care and ventilator support. JOB# [id number]
[2018-07-09 06:40] LABS: % BASOPHILS 0.2 % (0.0-2.0); % EOSINOPHILS 2.7 % (0.0-5.0); % LYMPHOCYTES 8.1 % (20.0-50.0); % MONOCYTES 10.9 % (2.0-10.0); % NEUTROPHILS 78.1 % (40.0-80.0); EOSINOPHILE ABSOLUTE 0.2 Th/cmm (0.1-0.4); HEMATOCRIT 22.6 % (41.0-60); LYMPHOCYTE ABSOLUTE 0.5 Th/cmm (1.5-3.0); MEAN CELL VOLUME 98.9 fl (81-100); MEAN CORPUSCULAR HEMOGLOBIN 33.4 pg (27.0-31.0); MEAN CORPUSCULAR HGB CONC 33.8 pg (28.0-36.0); MEAN PLATELET VOLUME 8.3 fl; MONOCYTE ABSOLUTE 0.7 Th/cmm (0.3-1.0); NEUTROPHILE ABSOLUTE 5.3 Th/cmm (1.8-8.0); PLATELET COUNT 279 Th/cmm (150-400); RED BLOOD COUNT 2.28 Mil/cmm (3.80-5.20); RED CELL DISTRIBUTION WIDTH 20.6 % (11.5-20.0); WHITE BLOOD COUNT 6.7 Th/cmm (4.8-10.8)
[2018-07-09 07:08] LABS: ALB/GLOB RATIO 1.3 (1.0-1.8); ALBUMIN 2.7 gm/dL (3.7-5.3); ALKALINE PHOSPHATASE 55 U/L (34-104); ANION GAP 10.9 (7.0-16.0); BILIRUBIN,TOTAL 0.6 mg/dL (0.3-1.0); BUN - UREA NITROGEN 39 mg/dL (7-25); CALCIUM SERUM 8.9 mg/dL (8.6-10.3); CARBON DIOXIDE 24.7 mEq/L (21.0-31.0); CHLORIDE 110 mEq/L (98-107); CREATININE - SERUM 1.9 mg/dL (0.6-1.2); GLUCOSE 126 mg/dL (70-105); POTASSIUM SERUM 3.6 mEq/L (3.5-5.1); SGOT 6 U/L (13-39); SGPT/ALT 8 U/L (7-52); SODIUM SERUM 142 mEq/L (136-145); TOTAL PROTEIN,SERUM 4.8 gm/dL (6.0-8.3)
[2018-07-09 07:21] LABS: HEMOGLOBIN 7.6 gm/dL (12-16)
[2018-07-09] MEDS ORDERED: Meperidine 50 mg/mL 1mL Syr ONE ×2 (08:40→08:41)
--- NOTE | 2018-07-09 10:41 | Operative Report ---
DATE OF SURGERY: 07/09/2018 PROCEDURES: 1. Esophagogastroduodenoscopy with biopsy. 2. Exchange of G-tube and placement of a new feeding tube. INDICATION FOR PROCEDURE: GI bleeding. CONSENT: Informed consent was obtained from the conservator. ANESTHESIA USED: Demerol 37.5 mg and Versed 1.5 mg. PREOPERATIVE DIAGNOSIS: Gastrointestinal bleed. POSTOPERATIVE DIAGNOSES: 1. Severe erosive esophagitis, rule out [place]. 2. Migrating G-tube to the gastric wall. 3. Severe gastritis at the G-tube site with significant erythema and congestion and edema. 4. Status post change of G-tube to a new replacement one size 20. DESCRIPTION OF PROCEDURE: The patient was lying on her back. Head was tilted to the side and flexed forward. Upper Olympus endoscope was introduced into the mouth and advanced to the esophagus, which was intubated under direct visualization. Esophageal mucosa was examined on the way down, it showed severe erosive esophagitis involving the whole esophagus down to the GE junction at 42 cm. Scope was advanced to stomach where the gastric mucosa was examined and showed intense erythema, edema and submucosal congestion of the area of the G-tube, but the G-tube itself was not in the stomach. Scope was retroflexed to examine the cardia and fundus. Scope was then straightened and advanced through the pylorus to the duodenum where the bulb and second part were examined and it showed duodenitis. Scope was then withdrawn to the stomach. Then, the site of G-tube was examined carefully and you could see the G-tube embedded in the gastric wall. Some purulent discharge around it. Biopsy was then taken from the antrum and body for histopathology, then from the antrum for CLOtest. Then, the G-tube was pulled out of the patient's abdomen. New replacement one size 20 went easily to the stomach, so balloon was inflated and G-tube was secured in place. Then, scope was withdrawn to the esophagus and biopsies were taken from there as well. Scope was then withdrawn to outside. The patient tolerated the procedure well. There were no immediate postoperative complications. RECOMMENDATIONS: 1. Continue with PPI. 2. Resume tube feeding, but watch for leakage. 3. Consider Diflucan pending the biopsy results. Thank you, Dr. Chong for allowing me to participate in the care of the patient. If you have any further questions, please let me know. [facility]# [id number]
[2018-07-09] MEDS ORDERED: Lidocaine 2% Gel 5 mL TP ONE (13:42)
[2018-07-09] MEDS ORDERED: Amikacin 500 mg in D5W 100mL (Q24HR) IV ONE (16:00)
[2018-07-09] MEDS: Dextrose 5% 1,000 ML IV SCH (19:55)
[2018-07-09] MEDS: Chlorhexidine Gluconate 0.12% 15mL Mouthwash MM SCH (20:10)
[2018-07-09] MEDS: Levofloxacin 250mg/50mL 250 MG/50 ML BAG IV SCH (20:54)
--- NOTE | 2018-07-09 23:14 | Internal Medicine Prog Note ---
Internal Medicine Subjective - Subjective Service Date: 07/09/18 Patient seen and examined:: with staff, chart reviewed Patient is:: awake, non-verbal, congested Patient Complaints of:: other (upper GI bleed, G-tube and ventral hernia.) Per staff patient has:: no adverse event, no episodes of fall Internal Medicine Objective - Results Result Diagrams: 07/10/18 04:40 07/10/18 04:40 Recent Labs: Laboratory Last Values WBC 6.7 Th/cmm (4.8-10.8) 07/09/18 06:00 RBC 2.28 Mil/cmm (3.80-5.20) L 07/09/18 06:00 Hgb 7.6 gm/dL (12-16) L* 07/09/18 06:00 Hct 22.6 % (41.0-60) L 07/09/18 06:00 MCV 98.9 fl (81-100) 07/09/18 06:00 MCH 33.4 pg (27.0-31.0) H 07/09/18 06:00 MCHC Differential 33.8 pg (28.0-36.0) 07/09/18 06:00 RDW 20.6 % (11.5-20.0) H 07/09/18 06:00 Plt Count 279 Th/cmm (150-400) 07/09/18 06:00 MPV 8.3 fl 07/09/18 06:00 Neutrophils % 78.1 % (40.0-80.0) 07/09/18 06:00 Band Neutrophils % 5 % (0-10) 07/07/18 05:00 Lymphocytes % 8.1 % (20.0-50.0) L 07/09/18 06:00 Monocytes % 10.9 % (2.0-10.0) H 07/09/18 06:00 Eosinophils % 2.7 % (0.0-5.0) 07/09/18 06:00 Basophils % 0.2 % (0.0-2.0) 07/09/18 06:00 Neutrophils (Manual) 80 % (40-80) 07/07/18 05:00 Lymphocytes 10 % (20-50) L 07/07/18 05:00 Monocytes 5 % (2-10) 07/07/18 05:00 Eosinophils 0.2 % (0-5) 07/06/18 00:20 PT 12.1 SECONDS (9.5-11.5) H 07/08/18 04:05 INR 1.17 (0.5-1.4) 07/08/18 04:05 PTT (Actin FS) 30.8 SECONDS (26.0-38.0) 07/06/18 00:20 Specimen Source Arterial 07/07/18 08:28 Sample Site Right Radial 07/07/18 08:28 pH 7.473 (7.35-7.45) H 07/07/18 08:28 pCO2 33.7 mmHg (35.0-45.0) L 07/07/18 08:28 pO2 69.7 mmHg (80.0-100.0) L 07/07/18 08:28 HCO3 24.1 mEq/L (20.0-26.0) 07/07/18 08:28 Base Excess 1.2 mEq/L (-3.0-3.0) 07/07/18 08:28 O2 Saturation 95.1 % (92.0-100.0) 07/07/18 08:28 Josue Test Positive 07/07/18 08:28 Vent Rate 16 07/07/18 08:28 Inspired O2 30 07/07/18 08:28 Tidal Volume 550 07/07/18 08:28 PEEP 5 07/07/18 08:28 Pressure (ins/psv/peep) N/A 07/07/18 08:28 Critical Value DM 07/07/18 08:28 Sodium 142 mEq/L (136-145) 07/09/18 06:00 Potassium 3.6 mEq/L (3.5-5.1) 07/09/18 06:00 Chloride 110 mEq/L (98-107) H 07/09/18 06:00 Carbon Dioxide 24.7 mEq/L (21.0-31.0) 07/09/18 06:00 Anion Gap 10.9 (7.0-16.0) 07/09/18 06:00 BUN 39 mg/dL (7-25) H 07/09/18 06:00 Creatinine 1.9 mg/dL (0.6-1.2) H 07/09/18 06:00 Est GFR ( Amer) TNP 07/09/18 06:00 Est GFR (Non-Af Amer) TNP 07/09/18 06:00 BUN/Creatinine Ratio 20.5 07/09/18 06:00 Glucose 126 mg/dL (70-105) H 07/09/18 06:00 Calcium 8.9 mg/dL (8.6-10.3) 07/09/18 06:00 Iron 22 ug/dL (27-139) L 07/06/18 00:20 TIBC 223 ug/dL (250-450) L 07/06/18 00:20 Iron Saturation 10 % (15-55) L 07/06/18 00:20 Unsaturated IBC 201 ug/dL (118-369) 07/06/18 00:20 Total Bilirubin 0.6 mg/dL (0.3-1.0) 07/09/18 06:00 AST 6 U/L (13-39) L 07/09/18 06:00 ALT 8 U/L (7-52) 07/09/18 06:00 Alkaline Phosphatase 55 U/L (34-104) 07/09/18 06:00 Troponin I 0.03 ng/mL (0.01-0.05) 07/06/18 00:20 B-Natriuretic Peptide 1210.0 pg/mL (5.0-100.0) H 07/06/18 00:20 Total Protein 4.8 gm/dL (6.0-8.3) L 07/09/18 06:00 Albumin 2.7 gm/dL (3.7-5.3) L 07/09/18 06:00 Globulin 2.1 gm/dL 07/09/18 06:00 Albumin/Globulin Ratio 1.3 (1.0-1.8) 07/09/18 06:00 Triglycerides 133 mg/dL (<150) 07/06/18 00:20 Cholesterol 122 mg/dL (<200) 07/06/18 00:20 LDL Cholesterol Direct 53 mg/dL (75-193) L 07/06/18 00:20 HDL Cholesterol 42 mg/dL (23-92) 07/06/18 00:20 TSH 2.47 uIU/ml (0.34-5.60) 07/06/18 00:20 Urine Source CATH 07/07/18 00:30 Urine Color STRAW 07/07/18 00:30 Urine Clarity CLEAR (CLEAR) 07/07/18 00:30 Urine pH 7.5 (4.6 - 8.0) 07/07/18 00:30 Ur Specific [place] 1.020 (1.005-1.030) 07/07/18 00:30 Urine Protein >=300 mg/dL (NEGATIVE) 07/07/18 00:30 Urine Glucose (UA) NEGATIVE mg/dL (NEGATIVE) 07/07/18 00:30 Urine Ketones NEGATIVE mg/dL (NEGATIVE) 07/07/18 00:30 Urine Blood NEGATIVE (NEGATIVE) 07/07/18 00:30 Urine Nitrate NEGATIVE (NEGATIVE) 07/07/18 00:30 Urine Bilirubin NEGATIVE (NEGATIVE) 07/07/18 00:30 Urine Urobilinogen 0.2 E.U./dL (0.2 - 1.0) 07/07/18 00:30 Ur Leukocyte Esterase NEGATIVE (NEGATIVE) 07/07/18 00:30 Levetiracetam 20.9 ug/mL (10.0-40.0) 07/06/18 00:20 Blood Type A NEGATIVE 07/08/18 08:40 Antibody Screen NEGATIVE 07/08/18 08:40 Crossmatch See Detail 07/08/18 08:40 - Physical Exam Vitals and I&O: Vital Signs Temp 99.7 F 07/09/18 19:00 Pulse 83 07/09/18 21:15 Resp 15 07/09/18 21:00 BP 146/65 07/09/18 21:00 Pulse Ox 100 07/09/18 22:00 Intake & Output 07/09/18 07/09/18 07/10/18 06:59 18:59 06:59 Intake Total 1400.417 770.667 Output Total 1200 350 Balance 200.417 420.667 Weight (lbs) 81.647 kg 81.647 kg Intake: Intake, IV Amount 1400.417 660.667 D5-0.45NS 1,000 ml @ 75 1221.25 595.0 mls/hr IV .[id number] [facility] Rx #:[id number] Levofloxacin 250mg/50mL 50 250 mg In 50 ml @ 50 mls/ hr IV Q24HR [facility] Rx#: [id number] Pantoprazole 80 mg In 129.167 65.667 Sodium Chloride 0.9% 100 ml @ 10 mls/hr IV Q10H [facility] Rx#:[id number] Oral 0 Tube Feeding 110 Output: Gastric Drainage 200 Urine 1000 350 Other: # Bowel Movements 0 Weight Source Bedscale Bedscale Active Medications: Current Medications Acetaminophen (Tylenol) 325 mg GT Q4HR PRN PRN Reason: Pain or Fever >101 Stop: 09/05/18 19:00 Last Admin: 07/07/18 19:43 Dose: 325 mg Chlorhexidine Gluconate (Peridex) 15 ml MM 08,1999 [facility] Stop: 09/07/18 19:59 Last Admin: 07/09/18 20:10 Dose: 15 ml Diltiazem HCl (Cardizem) 30 mg GT Q8H [facility] Stop: 09/05/18 19:14 Last Admin: 07/09/18 18:22 Dose: 30 mg Fluconazole (Diflucan) 100 mg GT DAILY [facility] Stop: 09/08/18 08:59 Hydralazine HCl (Apresoline 20 Mg/Ml) 10 mg IV Q4HR PRN PRN Reason: SBP >150 MM[facility] Stop: 09/05/18 07:48 Pantoprazole Sodium 80 mg/ (Sodium Chloride) 100 mls @ 10 mls/hr IV Q10H [facility] Stop: 09/05/18 08:59 Last Admin: 07/09/18 12:35 Dose: 10 mls/hr Levofloxacin (Levaquin Pb) 250 mg in 50 mls @ 50 mls/hr IV Q24HR [facility] Stop: 09/06/18 20:59 Last Admin: 07/09/18 20:54 Dose: 50 mls/hr Dextrose (D5w) 1,000 mls @ 100 mls/hr IV .Q10H [facility] Stop: 09/07/18 19:14 Last Admin: 07/09/18 19:55 Dose: 100 mls/hr Levetiracetam (Keppra) 500 mg PO Q12H [facility] Stop: 09/05/18 19:14 Last Admin: 07/09/18 18:22 Dose: 500 mg Levothyroxine Sodium 0.1 mg/ (Levothyroxine Sodium 0.05 mg) 0.15 mg PO QDAC [facility] Stop: 09/06/18 07:29 Last Admin: 07/09/18 07:16 Dose: Not Given Lorazepam (Ativan) 1 mg IVP Q4HR PRN; Protocol PRN Reason: Agitation Stop: 09/05/18 07:47 Last Admin: 07/09/18 22:31 Dose: 1 mg Miscellaneous (Amikacin Iv Per Pharmacy) 1 ea [facility] PRN PRN PRN Reason: PROTOCOL Stop: 09/07/18 15:34 Ondansetron HCl (Zofran) 4 mg IV Q6HR PRN PRN Reason: Vomiting Stop: 09/05/18 02:27 Last Admin: 07/07/18 06:48 Dose: 4 mg Physical Exam: Patient has dementia, was found to have GI bleed,due to erosive esophagitis. Patient will have transfusion if needed. We will continue to monitor and manage accordingly. General: weak, demented HEENT: NC/AT Neck: Supple, No JVD Lungs: CTAB Cardiovascular: RRR Abdomen: +GT, other (ventral hernia.) Extremities: clear Neurological: no change - Procedures Procedures: Procedures Procedure Code Date RESPIRATORY VENTILATION, 24-96 CONSECUTIVE HOURS [id number] 07/07/18 Internal Medicine Assmt/Plan - Assessment Assessment: Acute GI bleed due to erosive esophagitis. Dysphagia. Anemia. Ileus. R/o Gastritis. Severe Dementia. Hx of Respiratory failure. Hx of Seizures. Hx of CHF. Hx of CAD. Hx of Right breast cancer. Arthritis. - Plan Plan: Continuation of care. Monitor Vitals and Labs- CBC, CMP, Monitor Hemoglobin levels. Continue present meds as directed. Monitor Diet/Nutritional support. Monitor mental status progression. Monitor behavioral health status. G-tube care. Continue local care. Pain Management. Physical therapy. Occupational therapy. Safety precaution. Supportive care. Seizure precaution. Fall precaution, frequent nursing rounds, and as needed restraints to prevent fall. Continue collaborating with consulting specialists, case management and nursing team. Will Monitor patient and continue current treatment plan as ordered. Nutritional Asmnt/Malnutr-PDOC - Dietary Evaluation Malnutrition Findings (Please click <Entered> for more info): Nutritional Asmnt/Malnutrition Start: 07/08/18 16: 58 Text: Status: Complete Freq: Protocol: Document 07/08/18 16:58 LCHENG (Rec: 07/08/18 17:12 LCDORAG [id number]) Nutritional Asmnt/Malnutrition Patient General Information Nutritional Screening High Risk Consult Diagnosis vomiting, anemia, respiratory failure Pertinent Medical Hx/Surgical Hx HTN, CHF, CVA/TIA, seizure, right breast CA, PEG/Gtube Subjective Information Pt was admitted d/t coffee ground emesis. Pt seen in bed, trach to vent. Pt is on GT suction noted. TF not intiated at this time. RN reported pt will have EGD tommorrow. Consult received for admission glucose 194, NPO. Current Diet Order/ Nutrition Support NPO Pertinent Medications D5-0.45ns, levathyroxine, zofran Pertinent Labs 07/08 Na 146, Cl 112, BUN 35, Cr 1.7, glucose 109, ALb 2.9 07/07 Cl 109, BUN 32, Glucose 151, Alb 3.4 Nutritional Hx/Data Height 1.65 m Height (Calculated Centimeters) 165.1 Current Weight (lbs) 82.1 kg Weight (Calculated Kilograms) 82.1 Weight (Calculated Grams) 33970.2 [place] Body Weight 125 Body Mass Index (BMI) 30.1 Weight Status Obese GI Symptoms GI Symptoms Nausea Vomitting Last BM 07/07 Usual diet at home Novasource Renal at 40ml/hr x 20hr at care facility per pt chart Skin Integrity/Comment: IAD TO GLUTEAL FOLD, BUTTOCKS AND POSTERIOR THIGH rash to upper back , nech, R/L arms, abdomen [place] 12. Estimated Nutritional Goals BEE in Kcals: Adj wt of IBW Calories/Kcals/Kg 23-27 Kcals Calculated 7409-8287 Protein: Adj wt of IBW Protein g/k Protein Calculated 63 Fluid: ml 1449-1701ml (1ml/kcal) Nutritional Problem 1. Problem Problem altered GI function Etiology possible GI bleeding Signs/Symptoms: coffee ground emesis and pt on NPO status Malnutrition Alert Is there a minimum of two criteria No selected? Query Text:Check all the applicable criteria. A minimum of two criteria are recommended for diagnosis of either severe or non-severe malnutrition. Malnutrition Related to Morbid Obesity Malnutrition related to morbid obesity No Intervention/Recommendation Comments 1. Monitor NPO status. 2. If TF initiated when medically appropriate, recommend Glucerna 1.2 at goal rate of 50ml/hr countinuos to provide 1440kcal, 72g protein and 966ml free water, meeting 100% of nutritional needs. 3. Monitor GI function, wt, labs and skin integrity 4. F/U as high risk in 2 days Expected Outcomes/Goals Expected Outcomes/Goals 1. Pt to meet at least 90% of nutritional needs via nutrition support with tolerance 2. Wt stability, GI function to improve, skin to remain intact, labs to approach WNL.
[2018-07-10] MEDS: Diltiazem 30 mg Tab GT SCH ×2 (03:48→11:53)
--- NOTE | 2018-07-10 05:04 | Consultation ---
DATE OF CONSULTATION: 07/09/2018 INFECTIOUS DISEASE CONSULTATION REFERRING PHYSICIAN: Dr. Chong. REASON FOR CONSULTATION: Pneumonia. HISTORY OF PRESENT ILLNESS: The patient is an 82-year-old female with a past medical history of hypertension, CHF, CVA, seizure disorder, history of right breast cancer, vent-dependent respiratory failure, dementia, brought in from nursing facility for several episodes of vomiting and coffee-ground emesis. On initial evaluation, the patient's temperature was 99.1 degrees Fahrenheit. During the hospital stay, it went up to 100.1 degrees Fahrenheit. The patient's WBC count was 7900. Chest x-ray showed questionable infiltrate associated with the effusion, mainly on the left side. Pneumonia was suspected and sputum culture performed and grew Providencia stuartii and Proteus mirabilis. ID consult was called for further antibiotic management. PAST MEDICAL HISTORY: Includes dementia, vent-dependent respiratory failure, coronary artery disease, CVA, hypertension, CHF, seizure disorder, breast cancer on the right side. ALLERGIES: VANCOMYCIN AND SULFA DRUGS, ____, PROCHLORPERAZINE. MEDICATIONS: As per medication reconciliation sheet. Antibiotic tirado, the patient is on amikacin and Levaquin. PAST SURGICAL HISTORY: Includes a tracheostomy, G-tube placement, breast surgery and some abdominal surgeries. SOCIAL HISTORY: The patient lives at nursing facility. No history of smoking, alcohol or drug use at this time. FAMILY HISTORY: Noncontributory. REVIEW OF SYSTEMS: The patient unable to give any history. The patient is on ventilator status post tracheostomy. Obese. PHYSICAL EXAMINATION: VITAL SIGNS: Temperature is 99.7 degrees Fahrenheit, pulse 67, respirations 17, blood pressure 126/58. GENERAL: The patient is comfortable, lying in the bed, not in acute distress. HEENT: Head is normocephalic, atraumatic. Oral cavity moist, pink tongue. EYES: Pallor is present, no icterus. Pupils: PERRLA, EOMI. NECK: Trach site is clear. There is minimal secretion. CHEST: Bilateral vesicular breath sounds. No crackles or wheezing. HEART: S1, S2 within normal limits. Regular rhythm. No murmur, no gallop. ABDOMEN: Soft, nontender, nondistended. Bowel sounds present. PEG site is clear. EXTREMITIES: No cyanosis, no clubbing, no edema. NEUROLOGIC: Unresponsive at this time, not communicating. Aphasic. LABORATORY DATA: Current lab shows WBC count is 6700, hemoglobin is 7.6, hematocrit 22.6, platelets are 279,000, neutrophils is 78%. Sodium is 142, potassium 3.6, chloride 110, bicarbonate is 25, BUN is 39, creatinine 1.9, glucose is 126. Urinalysis shows negative nitrite, negative leukoesterase. Blood culture 2 sets are negative. MRSA screen is negative. Sputum culture grew Providencia stuartii. Chest x-ray shows ____ suspect most likely pneumonia on the left side. RECOMMENDATIONS: Change antibiotics to Zosyn. Thank you, Dr. Chong for involving me in taking care of this patient. JOB# [id number]
--- NOTE | 2018-07-10 05:08 | Consultation ---
DATE OF CONSULTATION: 07/09/2018 STOCK FITTER: Gaurav Castañeda MD. REASON FOR CONSULTATION: Worsening kidney function, electrolyte imbalance, and fluid management. HISTORY OF PRESENT ILLNESS: This is an 82-year-old female with past medical history of respiratory failure, vent dependent, who came in because of coffee-ground emesis. A few hours prior to admission, the patient had episodes of coffee-ground emesis at the [facility] care facility. She was then brought to the Emergency Room. Her hemoglobin/hematocrit are 9.9/30.1. KUB revealed nonspecific gas pattern. Her hemoglobin dropped to 7.5. She received 1 unit packed RBC and hemoglobin improved to 7.6. She underwent EGD today, which revealed erosive gastritis and severe gastritis at the G-tube site. Her BUN/creatinine upon admission were 28/1.2. Her BUN/creatinine today were 39/1.9. She had no nausea and vomiting, diarrhea since her admission. PAST MEDICAL HISTORY: 1. Essential hypertension. 2. History of congestive heart failure. 3. History of epilepsy. 4. History of right breast cancer. 5. Alzheimer dementia. 6. Respiratory failure, vent dependent. 7. Anemia of chronic disease. 8. Status post cerebrovascular accident. 9. Hypothyroidism. PAST SURGICAL HISTORY: 1. Status post tracheostomy. 2. Status post PEG placement. CURRENT MEDICATIONS: Currently on amikacin, chlorhexidine, diltiazem, fluconazole, hydralazine, levetiracetam, levofloxacin, lorazepam, ondansetron, pantoprazole. ALLERGIES: ALLERGIC TO CHLORPROMAZINE, PROCHLORPERAZINE. SOCIAL AND FAMILY HISTORY: I was not able to obtain directly from the patient because of the patient being on a ventilator and nonverbal. REVIEW OF SYSTEMS: Again, I was not able to decipher because of the same reason. PHYSICAL EXAMINATION: GENERAL: The patient is awake, somewhat anxious, on a ventilator. VITAL SIGNS: Her temperature is 98.7 degrees, pulse 71, blood pressure is 143/71. SKIN: Poor turgor, warm, no rash or no jaundice appreciated. HEENT: Head normocephalic, atraumatic. Eyes: Extraocular muscles are intact. Pupils equal, round, reactive to light and accommodates. Anicteric sclerae. Pale conjunctivae. Nose: Midline nasal septum. Mouth: Dry mucosa, poor dentition. NECK: Supple, no adenopathy, no thyromegaly, no bruits, presence of a tracheostomy tube. CHEST AND CARDIOVASCULAR: S1, S2. No rub, murmur, or gallop appreciated. Point of maximal impulse fifth intercostal space, left midclavicular line. No abdominal or femoral bruits appreciated. LUNGS: Equal expansion. No use of accessory muscles. No supraclavicular retractions. Decreased breath sounds, scattered rhonchi, but no rales or wheezes appreciated. ABDOMEN: Obese, soft, positive for bowel sounds. No ascites. No bruits, either diastolic or systolic. No rebound or guarding. There is no pulsatile mass. RECTAL: Unable to perform due to patient being on a ventilator. GENITOURINARY: Normal appearing female genitalia with indwelling Barahona catheter. MUSCULOSKELETAL: No effusions present in her joints, but unable to assess her range of motion. EXTREMITIES: She has mild bipedal edema. No evidence of cyanosis or clubbing. She has a palpable femoral, but unable to fully appreciate popliteal and dorsalis pedis pulses. NEUROLOGIC: The patient, as mentioned, is awake with voluntary movements of all of her extremities. LABORATORY DATA: Revealed sodium 142, potassium 3.6, chloride 110, CO2 of 24, BUN 39, creatinine 1.9, glucose 126. White count is 6.7, hemoglobin 7.6, hematocrit 32.6, platelets 279, polys 78.1%. IMPRESSION: 1. Upper gastrointestinal bleed secondary to erosive esophagitis and severe gastritis. 2. Acute kidney injury, possibly due to prerenal azotemia. Physical exam revealed poor skin turgor with dry oral mucosa. She has very concentrated urine. These are suggestive of underlying dehydration wherein there is a decrease in effective circulating volume. Her prerenal azotemia eventually progressed to acute tubular injury. 3. Anemia secondary to iron deficiency, possibly from gastrointestinal bleed on chronic disease. 4. Elevated BNP, doubt any underlying congestive heart failure, possible valvular disease. 3. Essential hypertension. 4. History of congestive heart failure. 5. History of epilepsy. 6. History of right breast cancer. 7. Alzheimer dementia. 8. Respiratory failure, vent dependent. 9. Anemia of chronic disease. 10. Status post cerebrovascular accident. 11. Hypothyroidism. PLAN: 1. Continue on with IV fluids. 2. Renal ultrasound. 3. Urine sodium, urine eosinophils, and creatinine. 4. Urine microalbumin to creatinine ratio. 5. Continue antiemetics. 6. Continue PPI. JOB# [id number]
[2018-07-10 05:16] LABS: HEMOGLOBIN 8.9 gm/dL (12-16); MEAN CELL VOLUME 94.5 fl (81-100); MEAN CORPUSCULAR HEMOGLOBIN 32.3 pg (27.0-31.0); MEAN CORPUSCULAR HGB CONC 34.1 pg (28.0-36.0); MEAN PLATELET VOLUME 7.8 fl; PLATELET COUNT 292 Th/cmm (150-400); RED BLOOD COUNT 2.75 Mil/cmm (3.80-5.20); RED CELL DISTRIBUTION WIDTH 20.6 % (11.5-20.0)
[2018-07-10 05:25] LABS: WHITE BLOOD COUNT 8.3 Th/cmm (4.8-10.8)
[2018-07-10] MEDS ORDERED: Piperacillin Sodium/Tazobact 2.25 gm Vial IV ONE (05:28)
[2018-07-10 05:54] LABS: ALB/GLOB RATIO 1.2 (1.0-1.8); ALBUMIN 2.7 gm/dL (3.7-5.3); ALKALINE PHOSPHATASE 55 U/L (34-104); ANION GAP 14.2 (7.0-16.0); BILIRUBIN,TOTAL 0.4 mg/dL (0.3-1.0); BUN - UREA NITROGEN 35 mg/dL (7-25); CALCIUM SERUM 9.1 mg/dL (8.6-10.3); CARBON DIOXIDE 19.6 mEq/L (21.0-31.0); CHLORIDE 109 mEq/L (98-107); CREATININE - SERUM 1.9 mg/dL (0.6-1.2); GLUCOSE 123 mg/dL (70-105); MAGNESIUM 1.8 mg/dL (1.9-2.7); PHOSPHOROUS 2.5 mg/dL (2.5-5.0); POTASSIUM SERUM 3.8 mEq/L (3.5-5.1); SGOT 14 U/L (13-39); SGPT/ALT 6 U/L (7-52); SODIUM SERUM 139 mEq/L (136-145)
[2018-07-10 07:04] LABS: BAND NEUTROPHILE 3 % (0-10); BASOPHIL 0 % (0-3); EOSINOPHIL 2 % (0-5); LYMPHOCYTE 13 % (20-50); METAMYELOCYTE 2 % (0-0); MONOCYTE 5 % (2-10); MYELOCYTE 2 %; NEUTROPHILS 73 % (40-80)
[2018-07-10] MEDS: Chlorhexidine Gluconate 0.12% 15mL Mouthwash MM SCH (08:51)
--- NOTE | 2018-07-10 08:53 | GI Progress Note ---
Subjective - Review of Systems Service Date: 07/10/18 Events since last encounter: S?P EGD S/P change of G Tube Subjective: Non verbal Objective - Results Result Diagrams: 07/10/18 04:40 07/10/18 04:40 Recent Labs: Laboratory Last Values WBC 8.3 Th/cmm (4.8-10.8) D 07/10/18 04:40 RBC 2.75 Mil/cmm (3.80-5.20) L 07/10/18 04:40 Hgb 8.9 gm/dL (12-16) L 07/10/18 04:40 Hct 26.0 % (41.0-60) L 07/10/18 04:40 MCV 94.5 fl (81-100) 07/10/18 04:40 MCH 32.3 pg (27.0-31.0) H 07/10/18 04:40 MCHC Differential 34.1 pg (28.0-36.0) 07/10/18 04:40 RDW 20.6 % (11.5-20.0) H 07/10/18 04:40 Plt Count 292 Th/cmm (150-400) 07/10/18 04:40 MPV 7.8 fl 07/10/18 04:40 Add Manual Diff YES 07/10/18 04:40 Neutrophils % 78.1 % (40.0-80.0) 07/09/18 06:00 Band Neutrophils % 3 % (0-10) 07/10/18 04:40 Lymphocytes % 8.1 % (20.0-50.0) L 07/09/18 06:00 Monocytes % 10.9 % (2.0-10.0) H 07/09/18 06:00 Eosinophils % 2.7 % (0.0-5.0) 07/09/18 06:00 Basophils % 0.2 % (0.0-2.0) 07/09/18 06:00 Neutrophils (Manual) 73 % (40-80) 07/10/18 04:40 Lymphocytes 13 % (20-50) L 07/10/18 04:40 Monocytes 5 % (2-10) 07/10/18 04:40 Eosinophils 2 % (0-5) 07/10/18 04:40 Basophils 0 % (0-3) 07/10/18 04:40 Metamyelocytes 2 % (0-0) H 07/10/18 04:40 Myelocytes 2 % 07/10/18 04:40 PT 12.1 SECONDS (9.5-11.5) H 07/08/18 04:05 INR 1.17 (0.5-1.4) 07/08/18 04:05 PTT (Actin FS) 30.8 SECONDS (26.0-38.0) 07/06/18 00:20 Specimen Source Arterial 07/07/18 08:28 Sample Site Right Radial 07/07/18 08:28 pH 7.473 (7.35-7.45) H 07/07/18 08:28 pCO2 33.7 mmHg (35.0-45.0) L 07/07/18 08:28 pO2 69.7 mmHg (80.0-100.0) L 07/07/18 08:28 HCO3 24.1 mEq/L (20.0-26.0) 07/07/18 08:28 Base Excess 1.2 mEq/L (-3.0-3.0) 07/07/18 08:28 O2 Saturation 95.1 % (92.0-100.0) 07/07/18 08:28 Josue Test Positive 07/07/18 08:28 Vent Rate 16 07/07/18 08:28 Inspired O2 30 07/07/18 08:28 Tidal Volume 550 07/07/18 08:28 PEEP 5 07/07/18 08:28 Pressure (ins/psv/peep) N/A 07/07/18 08:28 Critical Value DM 07/07/18 08:28 Sodium 139 mEq/L (136-145) 07/10/18 04:40 Potassium 3.8 mEq/L (3.5-5.1) 07/10/18 04:40 Chloride 109 mEq/L (98-107) H 07/10/18 04:40 Carbon Dioxide 19.6 mEq/L (21.0-31.0) L 07/10/18 04:40 Anion Gap 14.2 (7.0-16.0) 07/10/18 04:40 BUN 35 mg/dL (7-25) H 07/10/18 04:40 Creatinine 1.9 mg/dL (0.6-1.2) H 07/10/18 04:40 Est GFR ( Amer) TNP 07/10/18 04:40 Est GFR (Non-Af Amer) TNP 07/10/18 04:40 BUN/Creatinine Ratio 18.4 07/10/18 04:40 Glucose 123 mg/dL (70-105) H 07/10/18 04:40 Calcium 9.1 mg/dL (8.6-10.3) 07/10/18 04:40 Phosphorus 2.5 mg/dL (2.5-5.0) 07/10/18 04:40 Magnesium 1.8 mg/dL (1.9-2.7) L 07/10/18 04:40 Iron 22 ug/dL (27-139) L 07/06/18 00:20 TIBC 223 ug/dL (250-450) L 07/06/18 00:20 Iron Saturation 10 % (15-55) L 07/06/18 00:20 Unsaturated IBC 201 ug/dL (118-369) 07/06/18 00:20 Total Bilirubin 0.4 mg/dL (0.3-1.0) 07/10/18 04:40 AST 14 U/L (13-39) 07/10/18 04:40 ALT 6 U/L (7-52) L 07/10/18 04:40 Alkaline Phosphatase 55 U/L (34-104) 07/10/18 04:40 Troponin I 0.03 ng/mL (0.01-0.05) 07/06/18 00:20 B-Natriuretic Peptide 1210.0 pg/mL (5.0-100.0) H 07/06/18 00:20 Total Protein 5.0 gm/dL (6.0-8.3) L 07/10/18 04:40 Albumin 2.7 gm/dL (3.7-5.3) L 07/10/18 04:40 Globulin 2.3 gm/dL 07/10/18 04:40 Albumin/Globulin Ratio 1.2 (1.0-1.8) 07/10/18 04:40 Triglycerides 133 mg/dL (<150) 07/06/18 00:20 Cholesterol 122 mg/dL (<200) 07/06/18 00:20 LDL Cholesterol Direct 53 mg/dL (75-193) L 07/06/18 00:20 HDL Cholesterol 42 mg/dL (23-92) 07/06/18 00:20 TSH 2.47 uIU/ml (0.34-5.60) 07/06/18 00:20 Urine Source CATH 07/07/18 00:30 Urine Color STRAW 07/07/18 00:30 Urine Clarity CLEAR (CLEAR) 07/07/18 00:30 Urine pH 7.5 (4.6 - 8.0) 07/07/18 00:30 Ur Specific [place] 1.020 (1.005-1.030) 07/07/18 00:30 Urine Protein >=300 mg/dL (NEGATIVE) 07/07/18 00:30 Urine Glucose (UA) NEGATIVE mg/dL (NEGATIVE) 07/07/18 00:30 Urine Ketones NEGATIVE mg/dL (NEGATIVE) 07/07/18 00:30 Urine Blood NEGATIVE (NEGATIVE) 07/07/18 00:30 Urine Nitrate NEGATIVE (NEGATIVE) 07/07/18 00:30 Urine Bilirubin NEGATIVE (NEGATIVE) 07/07/18 00:30 Urine Urobilinogen 0.2 E.U./dL (0.2 - 1.0) 07/07/18 00:30 Ur Leukocyte Esterase NEGATIVE (NEGATIVE) 07/07/18 00:30 Levetiracetam 20.9 ug/mL (10.0-40.0) 07/06/18 00:20 Blood Type A NEGATIVE 07/08/18 08:40 Antibody Screen NEGATIVE 07/08/18 08:40 Crossmatch See Detail 07/08/18 08:40 - Physical Exam Vitals and I&O: Vital Signs Temp 98.6 F 07/10/18 06:00 Pulse 82 07/10/18 06:54 Resp 12 07/10/18 06:00 BP 143/64 07/10/18 06:00 Pulse Ox 97 07/10/18 06:54 Intake & Output 07/09/18 07/10/18 07/10/18 18:59 06:59 18:59 Intake Total 326.320 3760 76.667 Output Total 350 250 Balance 420.667 920 76.667 Weight (lbs) 81.647 kg 85.049 kg Intake: Intake, IV Amount 660.667 200 76.667 D5-0.45NS 1,000 ml @ 75 595.0 mls/hr IV .[id number] [facility] Rx #:[id number] Levofloxacin 250mg/50mL 50 250 mg In 50 ml @ 50 mls/ hr IV Q24HR [facility] Rx#: [id number] Pantoprazole 80 mg In 65.667 100 76.667 Sodium Chloride 0.9% 100 ml @ 10 mls/hr IV Q10H [facility] Rx#:[id number] Piperacillin Sodium/ 50 Tazobact 2.25 gm In Sodium Chloride 0.9% 50 ml @ 100 mls/hr IV Q6HR [facility] Rx#:[id number] Tube Feeding 110 420 Other 550 Output: Urine 350 250 Other: # Bowel Movements 0 0 Stool Characteristics Soft Brown Green Weight Source Bedscale Bedscale Active Medications: Current Medications Acetaminophen (Tylenol) 325 mg GT Q4HR PRN PRN Reason: Pain or Fever >101 Stop: 09/05/18 19:00 Last Admin: 07/07/18 19:43 Dose: 325 mg Chlorhexidine Gluconate (Peridex) 15 ml MM [phone] [facility] Stop: 09/07/18 19:59 Last Admin: 07/09/18 20:10 Dose: 15 ml Diltiazem HCl (Cardizem) 30 mg GT Q8H [facility] Stop: 09/05/18 19:14 Last Admin: 07/10/18 03:48 Dose: 30 mg Fluconazole (Diflucan) 100 mg GT DAILY [facility] Stop: 09/08/18 08:59 Hydralazine HCl (Apresoline 20 Mg/Ml) 10 mg IV Q4HR PRN PRN Reason: SBP >150 MMHG Stop: 09/05/18 07:48 Pantoprazole Sodium 80 mg/ (Sodium Chloride) 100 mls @ 10 mls/hr IV Q10H [facility] Stop: 09/05/18 08:59 Last Infusion: 07/10/18 07:01 Dose: 10 mls/hr Dextrose (D5w) 1,000 mls @ 100 mls/hr IV .Q10H [facility] Stop: 09/07/18 19:14 Last Admin: 07/09/18 19:55 Dose: 100 mls/hr Piperacillin Sod/Tazobactam (Sod 2.25 gm/ Sodium Chloride) 50 mls @ 100 mls/hr IV Q6HR [facility] Stop: 09/08/18 05:59 Last Infusion: 07/10/18 06:10 Dose: Infused Levetiracetam (Keppra) 500 mg PO Q12H [facility] Stop: 09/05/18 19:14 Last Admin: 07/10/18 06:42 Dose: 500 mg Levothyroxine Sodium 0.1 mg/ (Levothyroxine Sodium 0.05 mg) 0.15 mg PO QDAC [facility] Stop: 09/06/18 07:29 Last Admin: 07/10/18 06:43 Dose: 0.15 mg Lorazepam (Ativan) 1 mg IVP Q4HR PRN; Protocol PRN Reason: Agitation Stop: 09/05/18 07:47 Last Admin: 07/10/18 04:28 Dose: 1 mg Ondansetron HCl (Zofran) 4 mg IV Q6HR PRN PRN Reason: Vomiting Stop: 09/05/18 02:27 Last Admin: 07/07/18 06:48 Dose: 4 mg General: Alert, Other (On Vent) Cardiovascular: Regular rate, Normal S1, Normal S2 Lungs: Other (Rhonchi) Abdomen: Bowel sounds, Soft, Other (G tube and ventral Hernia), no Tender - Procedures Procedures: Procedures Procedure Code Date RESPIRATORY VENTILATION, 24-96 CONSECUTIVE HOURS [id number] 07/07/18 Assessment/Plan - Assessment Assessment: GI Bleeding Dysphagia Migrating G tube - Plan Plan: 1. GI Bleeding Due to erosive esophagitis Cont Diflucan pending Bx PPI Trransfuse if needed 2. Dysphagia Tolerating feeding 3. Migrating G tube S/P change Cont local care
[2018-07-10 09:51] LABS: URINE SOURCE FOLEY PORT
[2018-07-10 10:04] LABS: URINE BILIRUBIN NEGATIVE (NEGATIVE); URINE BLOOD TRACE (NEGATIVE); URINE GLUCOSE (UA) NEGATIVE (NEGATIVE); URINE KETONE NEGATIVE (NEGATIVE); URINE LEUKOCYTE ESTERASE SMALL (NEGATIVE); URINE MICROSCOPIC INDICATED? YES; URINE NITRATE NEGATIVE (NEGATIVE); URINE PH 6.5 (4.6 - 8.0); URINE PROTEIN 100 mg/dL (NEGATIVE); URINE UROBILINOGEN 0.2 E.U./dL (0.2 - 1.0)
[2018-07-10] MEDS: Dextrose 5% 1,000 ML IV SCH (10:22)
[2018-07-10] MEDS: Pantoprazole 80 MG in Sodium Chloride 0.9% 100 ML IV SCH (10:25)
[2018-07-10 10:48] LABS: URINE CLARITY HAZY (CLEAR); URINE COLOR YELLOW
--- NOTE | 2018-07-10 10:51 | Diagnostic Imaging Report ---
Renal ultrasound HISTORY: Acute renal failure. COMPARISON: None Technique: Sonography of the kidneys and urinary bladder was performed in multiple planes. FINDINGS: Exam is limited due to body habitus. The right kidney measures 9.9 x 4.0 cm. The left kidney measures 8.8 x 4.8 cm. There is increased echogenicity of the kidneys. Assessment for focal lesions is limited due to body habitus. No hydronephrosis. Barahona catheter seen within the urinary bladder. The urinary bladder is underdistended limiting its evaluation. IMPRESSION: Limited exam. No evidence of hydronephrosis. Increased echogenicity of the kidneys which may be due to underlying medical renal disease.
[2018-07-10 10:53] LABS: URINE RBC 0-2 /hpf (0-5)
[2018-07-10 10:55] LABS: URINE BACTERIA MODERATE /hpf (NONE SEEN); URINE EPITHELIAL CELLS RARE /lpf (FEW); URINE WBC 50-100 /hpf (0-5)
--- NOTE | 2018-07-10 11:22 | Pathology Report ---
[id number] Collection Date: 07/09/2018. Surgeon: Dr. Arnulfo Pradhan. Specimen Description: 1. Antrum biopsy. 2. Esophageal biopsy. Gross Description: Part I: Received in formalin are three ambrocio soft tissue fragments, ranging from 0.1 to 0.2 cm in greatest dimension. Totally submitted in one cassette labeled A. Gross Description: Part II: Received in formalin are three ambrocio soft tissue fragments, ranging from 0.1 cm to 0.2 cm in greatest dimension. Totally submitted in one cassette labeled B. Microscopic Description: Part I: The histologic sections show gastric mucosa with mild chronic inflammation present consisting of small numbers of lymphocytes and plasma cells. The Giemsa stains show no evidence for Helicobacter pylori. Diagnoses: Part I: 1. Chronic gastritis, antrum biopsy. 2. The Giemsa stain is negative for Helicobacter pylori. Microscopic Description: Part II: The histologic sections show extensively ulcerated tissue consisting of mostly degenerated/ulcerated material with no intact mucosal surfaces appreciated. There is extensive acute inflammation present consisting of large collections of neutrophils. The Alcian blue and PAS stains are performed and shows no apparent abnormalities. A GMS stain is also performed, and shows no evidence for fungal organisms. Diagnoses: Part II: Ulcerated tissue consistent with severe erosive esophagitis (esophageal biopsy). Comment: There is no evidence for [place] on the esophageal biopsy, however, histologic evaluation is limited by the extensive ulceration present, with a lack of intact mucosal surfaces in this specimen. Clinical correlation is recommended to determine if further studies are warranted. [facility]# [id number] [facility] HOSPITALTorito
--- NOTE | 2018-07-10 11:38 | Progress Notes ---
DATE: 07/09/2018 PULMONARY PROGRESS NOTE SUBJECTIVE: The patient appears to be doing okay, no distress. OBJECTIVE: VITAL SIGNS: Temperature 98.7, pulse 71, respirations 14, blood pressure 143/71, and saturation 98%. CHEST: Good breath sounds. No wheezing or rhonchi. HEART: Regular rate and rhythm. ABDOMEN: Soft. No tenderness. EXTREMITIES: No edema. LABORATORY DATA: WBC 6.7, hemoglobin 7.6, hematocrit 22.6, and platelets is 279. Sodium 142, potassium 3.9, BUN is 39, and creatinine 1.9. IMPRESSION: 1. Respiratory failure. 2. Pneumonia. 3. Weakness. 4. Dysphagia. 5. Anemia. PLAN: Continue vent support, antibiotics, pulmonary toilet, supportive care with blood transfusion. JOB# [id number]
--- NOTE | 2018-07-10 11:52 | Internal Medicine Prog Note ---
Internal Medicine Subjective - Subjective Service Date: 07/10/18 Patient seen and examined:: with staff Patient is:: awake, verbal, congested Patient Complaints of:: other (upper GI bleed, was vomitting.) Per staff patient has:: no adverse event, no episodes of fall Internal Medicine Objective - Results Result Diagrams: 07/10/18 04:40 07/10/18 04:40 Recent Labs: Laboratory Last Values WBC 8.3 Th/cmm (4.8-10.8) D 07/10/18 04:40 RBC 2.75 Mil/cmm (3.80-5.20) L 07/10/18 04:40 Hgb 8.9 gm/dL (12-16) L 07/10/18 04:40 Hct 26.0 % (41.0-60) L 07/10/18 04:40 MCV 94.5 fl (81-100) 07/10/18 04:40 MCH 32.3 pg (27.0-31.0) H 07/10/18 04:40 MCHC Differential 34.1 pg (28.0-36.0) 07/10/18 04:40 RDW 20.6 % (11.5-20.0) H 07/10/18 04:40 Plt Count 292 Th/cmm (150-400) 07/10/18 04:40 MPV 7.8 fl 07/10/18 04:40 Add Manual Diff YES 07/10/18 04:40 Neutrophils % 78.1 % (40.0-80.0) 07/09/18 06:00 Band Neutrophils % 3 % (0-10) 07/10/18 04:40 Lymphocytes % 8.1 % (20.0-50.0) L 07/09/18 06:00 Monocytes % 10.9 % (2.0-10.0) H 07/09/18 06:00 Eosinophils % 2.7 % (0.0-5.0) 07/09/18 06:00 Basophils % 0.2 % (0.0-2.0) 07/09/18 06:00 Neutrophils (Manual) 73 % (40-80) 07/10/18 04:40 Lymphocytes 13 % (20-50) L 07/10/18 04:40 Monocytes 5 % (2-10) 07/10/18 04:40 Eosinophils 2 % (0-5) 07/10/18 04:40 Basophils 0 % (0-3) 07/10/18 04:40 Metamyelocytes 2 % (0-0) H 07/10/18 04:40 Myelocytes 2 % 07/10/18 04:40 PT 12.1 SECONDS (9.5-11.5) H 07/08/18 04:05 INR 1.17 (0.5-1.4) 07/08/18 04:05 PTT (Actin FS) 30.8 SECONDS (26.0-38.0) 07/06/18 00:20 Specimen Source Arterial 07/07/18 08:28 Sample Site Right Radial 07/07/18 08:28 pH 7.473 (7.35-7.45) H 07/07/18 08:28 pCO2 33.7 mmHg (35.0-45.0) L 07/07/18 08:28 pO2 69.7 mmHg (80.0-100.0) L 07/07/18 08:28 HCO3 24.1 mEq/L (20.0-26.0) 07/07/18 08:28 Base Excess 1.2 mEq/L (-3.0-3.0) 07/07/18 08:28 O2 Saturation 95.1 % (92.0-100.0) 07/07/18 08:28 Josue Test Positive 07/07/18 08:28 Vent Rate 16 07/07/18 08:28 Inspired O2 30 07/07/18 08:28 Tidal Volume 550 07/07/18 08:28 PEEP 5 07/07/18 08:28 Pressure (ins/psv/peep) N/A 07/07/18 08:28 Critical Value DM 07/07/18 08:28 Sodium 139 mEq/L (136-145) 07/10/18 04:40 Potassium 3.8 mEq/L (3.5-5.1) 07/10/18 04:40 Chloride 109 mEq/L (98-107) H 07/10/18 04:40 Carbon Dioxide 19.6 mEq/L (21.0-31.0) L 07/10/18 04:40 Anion Gap 14.2 (7.0-16.0) 07/10/18 04:40 BUN 35 mg/dL (7-25) H 07/10/18 04:40 Creatinine 1.9 mg/dL (0.6-1.2) H 07/10/18 04:40 Est GFR ( Amer) TNP 07/10/18 04:40 Est GFR (Non-Af Amer) TNP 07/10/18 04:40 BUN/Creatinine Ratio 18.4 07/10/18 04:40 Glucose 123 mg/dL (70-105) H 07/10/18 04:40 Calcium 9.1 mg/dL (8.6-10.3) 07/10/18 04:40 Phosphorus 2.5 mg/dL (2.5-5.0) 07/10/18 04:40 Magnesium 1.8 mg/dL (1.9-2.7) L 07/10/18 04:40 Iron 22 ug/dL (27-139) L 07/06/18 00:20 TIBC 223 ug/dL (250-450) L 07/06/18 00:20 Iron Saturation 10 % (15-55) L 07/06/18 00:20 Unsaturated IBC 201 ug/dL (118-369) 07/06/18 00:20 Total Bilirubin 0.4 mg/dL (0.3-1.0) 07/10/18 04:40 AST 14 U/L (13-39) 07/10/18 04:40 ALT 6 U/L (7-52) L 07/10/18 04:40 Alkaline Phosphatase 55 U/L (34-104) 07/10/18 04:40 Troponin I 0.03 ng/mL (0.01-0.05) 07/06/18 00:20 B-Natriuretic Peptide 1210.0 pg/mL (5.0-100.0) H 07/06/18 00:20 Total Protein 5.0 gm/dL (6.0-8.3) L 07/10/18 04:40 Albumin 2.7 gm/dL (3.7-5.3) L 07/10/18 04:40 Globulin 2.3 gm/dL 07/10/18 04:40 Albumin/Globulin Ratio 1.2 (1.0-1.8) 07/10/18 04:40 Triglycerides 133 mg/dL (<150) 07/06/18 00:20 Cholesterol 122 mg/dL (<200) 07/06/18 00:20 LDL Cholesterol Direct 53 mg/dL (75-193) L 07/06/18 00:20 HDL Cholesterol 42 mg/dL (23-92) 07/06/18 00:20 TSH 2.47 uIU/ml (0.34-5.60) 07/06/18 00:20 Urine Source [place] 07/10/18 09:50 Urine Color YELLOW 07/10/18 09:50 Urine Clarity HAZY (CLEAR) 07/10/18 09:50 Urine pH 6.5 (4.6 - 8.0) 07/10/18 09:50 Ur Specific [place] 1.010 (1.005-1.030) 07/10/18 09:50 Urine Protein 100 mg/dL (NEGATIVE) H 07/10/18 09:50 Urine Glucose (UA) NEGATIVE mg/dL (NEGATIVE) 07/10/18 09:50 Urine Ketones NEGATIVE mg/dL (NEGATIVE) 07/10/18 09:50 Urine Blood TRACE (NEGATIVE) 07/10/18 09:50 Urine Nitrate NEGATIVE (NEGATIVE) 07/10/18 09:50 Urine Bilirubin NEGATIVE (NEGATIVE) 07/10/18 09:50 Urine Urobilinogen 0.2 E.U./dL (0.2 - 1.0) 07/10/18 09:50 Ur Leukocyte Esterase SMALL (NEGATIVE) H 07/10/18 09:50 Urine RBC 0-2 /hpf (0-5) 07/10/18 09:50 Urine WBC 50-100 /hpf (0-5) H 07/10/18 09:50 Ur Epithelial Cells RARE /lpf (FEW) 07/10/18 09:50 Urine Bacteria MODERATE /hpf (NONE SEEN) H 07/10/18 09:50 Ur Random Sodium 72 mmol/L 07/10/18 09:50 Urine Creatinine 83.0 mg/dl (28.0-217.0) 07/10/18 09:50 Levetiracetam 20.9 ug/mL (10.0-40.0) 07/06/18 00:20 Blood Type A NEGATIVE 07/08/18 08:40 Antibody Screen NEGATIVE 07/08/18 08:40 Crossmatch See Detail 07/08/18 08:40 - Physical Exam Vitals and I&O: Vital Signs Temp 98.2 F 07/10/18 11:36 Pulse 99 07/10/18 11:36 Resp 16 07/10/18 11:36 BP 163/83 07/10/18 11:36 Pulse Ox 100 07/10/18 11:36 Intake & Output 07/09/18 07/10/18 07/10/18 18:59 06:59 18:59 Intake Total 246.210 3643 100.000 Output Total 350 250 Balance 472.767 8681 100.000 Weight (lbs) 81.647 kg 85.049 kg Intake: Intake, IV Amount 542.219 5641 100.000 D5-0.45NS 1,000 ml @ 75 595.0 mls/hr IV .[id number] [facility] Rx #:[id number] Dextrose 5% 1,000 ml @ 1000 100 mls/hr IV .Q10H [facility] Rx#:[id number] Levofloxacin 250mg/50mL 50 250 mg In 50 ml @ 50 mls/ hr IV Q24HR [facility] Rx#: [id number] Pantoprazole 80 mg In 65.667 100 100.000 Sodium Chloride 0.9% 100 ml @ 10 mls/hr IV Q10H [facility] Rx#:[id number] Piperacillin Sodium/ 50 Tazobact 2.25 gm In Sodium Chloride 0.9% 50 ml @ 100 mls/hr IV Q6HR [facility] Rx#:[id number] Tube Feeding 110 420 Other 550 Output: Urine 350 250 Other: # Bowel Movements 0 0 Stool Characteristics Soft Brown Green Weight Source Bedscale Bedscale Active Medications: Current Medications Acetaminophen (Tylenol) 325 mg GT Q4HR PRN PRN Reason: Pain or Fever >101 Stop: 09/05/18 19:00 Last Admin: 07/07/18 19:43 Dose: 325 mg Chlorhexidine Gluconate (Peridex) 15 ml MM 799,1999 [facility] Stop: 09/07/18 19:59 Last Admin: 07/10/18 08:51 Dose: 15 ml Diltiazem HCl (Cardizem) 30 mg GT Q8H [facility] Stop: 09/05/18 19:14 Last Admin: 07/10/18 03:48 Dose: 30 mg Fluconazole (Diflucan) 100 mg GT DAILY [facility] Stop: 09/08/18 08:59 Last Admin: 07/10/18 08:51 Dose: 100 mg Hydralazine HCl (Apresoline 20 Mg/Ml) 10 mg IV Q4HR PRN PRN Reason: SBP >150 MMHG Stop: 09/05/18 07:48 Last Admin: 07/10/18 11:10 Dose: 10 mg Pantoprazole Sodium 80 mg/ (Sodium Chloride) 100 mls @ 10 mls/hr IV Q10H [facility] Stop: 09/05/18 08:59 Last Admin: 07/10/18 10:25 Dose: 10 mls/hr Dextrose (D5w) 1,000 mls @ 100 mls/hr IV .Q10H [facility] Stop: 09/07/18 19:14 Last Admin: 07/10/18 10:22 Dose: 100 mls/hr Piperacillin Sod/Tazobactam (Sod 2.25 gm/ Sodium Chloride) 50 mls @ 100 mls/hr IV Q6HR [facility] Stop: 09/08/18 05:59 Last Infusion: 07/10/18 06:10 Dose: Infused Levetiracetam (Keppra) 500 mg PO Q12H [facility] Stop: 09/05/18 19:14 Last Admin: 07/10/18 06:42 Dose: 500 mg Levothyroxine Sodium 0.1 mg/ (Levothyroxine Sodium 0.05 mg) 0.15 mg PO QDAC [facility] Stop: 09/06/18 07:29 Last Admin: 07/10/18 06:43 Dose: 0.15 mg Lorazepam (Ativan) 1 mg IVP Q4HR PRN; Protocol PRN Reason: Agitation Stop: 09/05/18 07:47 Last Admin: 07/10/18 04:28 Dose: 1 mg Ondansetron HCl (Zofran) 4 mg IV Q6HR PRN PRN Reason: Vomiting Stop: 09/05/18 02:27 Last Admin: 07/07/18 06:48 Dose: 4 mg Physical Exam: 82 y/o Female Patient had a Renal Ultrasound which showed Incresed echogenicity of the kidneys which may be due to underlying renal disease. General: weak, demented HEENT: NC/AT Neck: Supple, No JVD Lungs: CTAB Cardiovascular: RRR Abdomen: soft, non-tender Extremities: clear Neurological: no change - Procedures Procedures: Procedures Procedure Code Date CHANGE FEEDING DEVICE IN UP INTEST TRACT, ACCOUNTS RECEIVABLE COORDINATOR APPROACH [id number] 07/07/18 RESPIRATORY VENTILATION, 24-96 CONSECUTIVE HOURS [id number] 07/07/18 Internal Medicine Assmt/Plan - Assessment Assessment: Acute GI bleed due to erosive esophagitis. Anemia. Ileus. Dysphagia. Migrating G-tube. R/o Gastritis. Severe Dementia. Hx of Respiratory failure. Hx of Seizures. Hx of CHF. Hx of CAD. Hx of Right breast cancer. Arthritis. - Plan Plan: Continuation of care. Transfuse if needed. Monitor Vitals and Labs- CBC, CMP, Monitor Hemoglobin levels. Continue present meds as directed. Monitor Diet/Nutritional support. Monitor mental status progression. Monitor behavioral health status. Continue local skin care- G-tube care. Pain Management. Physical therapy. Occupational therapy. Safety precaution. Supportive care. Seizure precaution. Fall precaution, frequent nursing rounds, and as needed restraints to prevent fall. Continue collaborating with consulting specialists, case management and nursing team. Will Monitor patient and continue present care management. Nutritional Asmnt/Malnutr-PDOC - Dietary Evaluation Malnutrition Findings (Please click <Entered> for more info): Nutritional Asmnt/Malnutrition Start: 07/08/18 16: 58 Text: Status: Complete Freq: Protocol: Document 07/08/18 16:58 LCHENG (Rec: 07/08/18 17:12 LCHENG [email or web address]) Nutritional Asmnt/Malnutrition Patient General Information Nutritional Screening High Risk Consult Diagnosis vomiting, anemia, respiratory failure Pertinent Medical Hx/Surgical Hx HTN, CHF, CVA/TIA, seizure, right breast CA, PEG/Gtube Subjective Information Pt was admitted d/t coffee ground emesis. Pt seen in bed, trach to vent. Pt is on GT suction noted. TF not intiated at this time. RN reported pt will have EGD tommorrow. Consult received for admission glucose 194, NPO. Current Diet Order/ Nutrition Support NPO Pertinent Medications D5-0.45ns, levathyroxine, zofran Pertinent Labs 07/08 Na 146, Cl 112, BUN 35, Cr 1.7, glucose 109, ALb 2.9 07/07 Cl 109, BUN 32, Glucose 151, Alb 3.4 Nutritional Hx/Data Height 1.65 m Height (Calculated Centimeters) 165.1 Current Weight (lbs) 82.1 kg Weight (Calculated Kilograms) 82.1 Weight (Calculated Grams) 45670.2 [place] Body Weight 125 Body Mass Index (BMI) 30.1 Weight Status Obese GI Symptoms GI Symptoms Nausea Vomitting Last BM 07/07 Usual diet at home Novasource Renal at 40ml/hr x 20hr at care facility per pt chart Skin Integrity/Comment: IAD TO GLUTEAL FOLD, BUTTOCKS AND POSTERIOR THIGH rash to upper back , nech, R/L arms, abdomen Kayden 12. Estimated Nutritional Goals BEE in Kcals: Adj wt of IBW Calories/Kcals/Kg 23-27 Kcals Calculated 0852-2743 Protein: Adj wt of IBW Protein g/k Protein Calculated 63 Fluid: ml 1449-1701ml (1ml/kcal) Nutritional Problem 1. Problem Problem altered GI function Etiology possible GI bleeding Signs/Symptoms: coffee ground emesis and pt on NPO status Malnutrition Alert Is there a minimum of two criteria No selected? Query Text:Check all the applicable criteria. A minimum of two criteria are recommended for diagnosis of either severe or non-severe malnutrition. Malnutrition Related to Morbid Obesity Malnutrition related to morbid obesity No Intervention/Recommendation Comments 1. Monitor NPO status. 2. If TF initiated when medically appropriate, recommend Glucerna 1.2 at goal rate of 50ml/hr countinuos to provide 1440kcal, 72g protein and 966ml free water, meeting 100% of nutritional needs. 3. Monitor GI function, wt, labs and skin integrity 4. F/U as high risk in 2 days Expected Outcomes/Goals Expected Outcomes/Goals 1. Pt to meet at least 90% of nutritional needs via nutrition support with tolerance 2. Wt stability, GI function to improve, skin to remain intact, labs to approach WNL.
--- NOTE | 2018-07-10 13:37 | General Progress Note ---
Subjective - Review of Systems Service Date: 07/10/18 Subjective: sleeping, comfortable Objective - Results Result Diagrams: 07/10/18 04:40 07/10/18 04:40 Recent Labs: Laboratory Last Values WBC 8.3 Th/cmm (4.8-10.8) D 07/10/18 04:40 RBC 2.75 Mil/cmm (3.80-5.20) L 07/10/18 04:40 Hgb 8.9 gm/dL (12-16) L 07/10/18 04:40 Hct 26.0 % (41.0-60) L 07/10/18 04:40 MCV 94.5 fl (81-100) 07/10/18 04:40 MCH 32.3 pg (27.0-31.0) H 07/10/18 04:40 MCHC Differential 34.1 pg (28.0-36.0) 07/10/18 04:40 RDW 20.6 % (11.5-20.0) H 07/10/18 04:40 Plt Count 292 Th/cmm (150-400) 07/10/18 04:40 MPV 7.8 fl 07/10/18 04:40 Add Manual Diff YES 07/10/18 04:40 Neutrophils % 78.1 % (40.0-80.0) 07/09/18 06:00 Band Neutrophils % 3 % (0-10) 07/10/18 04:40 Lymphocytes % 8.1 % (20.0-50.0) L 07/09/18 06:00 Monocytes % 10.9 % (2.0-10.0) H 07/09/18 06:00 Eosinophils % 2.7 % (0.0-5.0) 07/09/18 06:00 Basophils % 0.2 % (0.0-2.0) 07/09/18 06:00 Neutrophils (Manual) 73 % (40-80) 07/10/18 04:40 Lymphocytes 13 % (20-50) L 07/10/18 04:40 Monocytes 5 % (2-10) 07/10/18 04:40 Eosinophils 2 % (0-5) 07/10/18 04:40 Basophils 0 % (0-3) 07/10/18 04:40 Metamyelocytes 2 % (0-0) H 07/10/18 04:40 Myelocytes 2 % 07/10/18 04:40 Smear Path Review 07/10/18 04:40 PT 12.1 SECONDS (9.5-11.5) H 07/08/18 04:05 INR 1.17 (0.5-1.4) 07/08/18 04:05 PTT (Actin FS) 30.8 SECONDS (26.0-38.0) 07/06/18 00:20 Specimen Source Arterial 07/07/18 08:28 Sample Site Right Radial 07/07/18 08:28 pH 7.473 (7.35-7.45) H 07/07/18 08:28 pCO2 33.7 mmHg (35.0-45.0) L 07/07/18 08:28 pO2 69.7 mmHg (80.0-100.0) L 07/07/18 08:28 HCO3 24.1 mEq/L (20.0-26.0) 07/07/18 08:28 Base Excess 1.2 mEq/L (-3.0-3.0) 07/07/18 08:28 O2 Saturation 95.1 % (92.0-100.0) 07/07/18 08:28 Josue Test Positive 07/07/18 08:28 Vent Rate 16 07/07/18 08:28 Inspired O2 30 07/07/18 08:28 Tidal Volume 550 07/07/18 08:28 PEEP 5 07/07/18 08:28 Pressure (ins/psv/peep) N/A 07/07/18 08:28 Critical Value DM 07/07/18 08:28 Sodium 139 mEq/L (136-145) 07/10/18 04:40 Potassium 3.8 mEq/L (3.5-5.1) 07/10/18 04:40 Chloride 109 mEq/L (98-107) H 07/10/18 04:40 Carbon Dioxide 19.6 mEq/L (21.0-31.0) L 07/10/18 04:40 Anion Gap 14.2 (7.0-16.0) 07/10/18 04:40 BUN 35 mg/dL (7-25) H 07/10/18 04:40 Creatinine 1.9 mg/dL (0.6-1.2) H 07/10/18 04:40 Est GFR ( Amer) TNP 07/10/18 04:40 Est GFR (Non-Af Amer) TNP 07/10/18 04:40 BUN/Creatinine Ratio 18.4 07/10/18 04:40 Glucose 123 mg/dL (70-105) H 07/10/18 04:40 Calcium 9.1 mg/dL (8.6-10.3) 07/10/18 04:40 Phosphorus 2.5 mg/dL (2.5-5.0) 07/10/18 04:40 Magnesium 1.8 mg/dL (1.9-2.7) L 07/10/18 04:40 Iron 22 ug/dL (27-139) L 07/06/18 00:20 TIBC 223 ug/dL (250-450) L 07/06/18 00:20 Iron Saturation 10 % (15-55) L 07/06/18 00:20 Unsaturated IBC 201 ug/dL (118-369) 07/06/18 00:20 Total Bilirubin 0.4 mg/dL (0.3-1.0) 07/10/18 04:40 AST 14 U/L (13-39) 07/10/18 04:40 ALT 6 U/L (7-52) L 07/10/18 04:40 Alkaline Phosphatase 55 U/L (34-104) 07/10/18 04:40 Troponin I 0.03 ng/mL (0.01-0.05) 07/06/18 00:20 B-Natriuretic Peptide 1210.0 pg/mL (5.0-100.0) H 07/06/18 00:20 Total Protein 5.0 gm/dL (6.0-8.3) L 07/10/18 04:40 Albumin 2.7 gm/dL (3.7-5.3) L 07/10/18 04:40 Globulin 2.3 gm/dL 07/10/18 04:40 Albumin/Globulin Ratio 1.2 (1.0-1.8) 07/10/18 04:40 Triglycerides 133 mg/dL (<150) 07/06/18 00:20 Cholesterol 122 mg/dL (<200) 07/06/18 00:20 LDL Cholesterol Direct 53 mg/dL (75-193) L 07/06/18 00:20 HDL Cholesterol 42 mg/dL (23-92) 07/06/18 00:20 TSH 2.47 uIU/ml (0.34-5.60) 07/06/18 00:20 Urine Source [place] 07/10/18 09:50 Urine Color YELLOW 07/10/18 09:50 Urine Clarity HAZY (CLEAR) 07/10/18 09:50 Urine pH 6.5 (4.6 - 8.0) 07/10/18 09:50 Ur Specific Desmet 1.010 (1.005-1.030) 07/10/18 09:50 Urine Protein 100 mg/dL (NEGATIVE) H 07/10/18 09:50 Urine Glucose (UA) NEGATIVE mg/dL (NEGATIVE) 07/10/18 09:50 Urine Ketones NEGATIVE mg/dL (NEGATIVE) 07/10/18 09:50 Urine Blood TRACE (NEGATIVE) 07/10/18 09:50 Urine Nitrate NEGATIVE (NEGATIVE) 07/10/18 09:50 Urine Bilirubin NEGATIVE (NEGATIVE) 07/10/18 09:50 Urine Urobilinogen 0.2 E.U./dL (0.2 - 1.0) 07/10/18 09:50 Ur Leukocyte Esterase SMALL (NEGATIVE) H 07/10/18 09:50 Urine RBC 0-2 /hpf (0-5) 07/10/18 09:50 Urine WBC 50-100 /hpf (0-5) H 07/10/18 09:50 Ur Epithelial Cells RARE /lpf (FEW) 07/10/18 09:50 Urine Bacteria MODERATE /hpf (NONE SEEN) H 07/10/18 09:50 Ur Random Sodium 72 mmol/L 07/10/18 09:50 Urine Creatinine 83.0 mg/dl (28.0-217.0) 07/10/18 09:50 Levetiracetam 20.9 ug/mL (10.0-40.0) 07/06/18 00:20 Helicobacter pylori Ab POSITIVE (NEGATIVE) 07/09/18 09:55 Blood Type A NEGATIVE 07/08/18 08:40 Antibody Screen NEGATIVE 07/08/18 08:40 Crossmatch See Detail 07/08/18 08:40 - Physical Exam Vitals and I&O: Vital Signs Temp 98.2 F 07/10/18 11:36 Pulse 109 07/10/18 12:10 Resp 16 07/10/18 11:36 BP 129/64 07/10/18 12:10 Pulse Ox 100 07/10/18 11:36 Intake & Output 07/09/18 07/10/18 07/10/18 18:59 06:59 18:59 Intake Total 408.428 8682 100.000 Output Total 350 250 Balance 924.351 4675 100.000 Weight (lbs) 81.647 kg 85.049 kg Intake: Intake, IV Amount 340.262 6403 100.000 D5-0.45NS 1,000 ml @ 75 595.0 mls/hr IV .[id number] [facility] Rx #:[id number] Dextrose 5% 1,000 ml @ 1000 100 mls/hr IV .Q10H [facility] Rx#:[id number] Levofloxacin 250mg/50mL 50 250 mg In 50 ml @ 50 mls/ hr IV Q24HR [facility] Rx#: [id number] Pantoprazole 80 mg In 65.667 100 100.000 Sodium Chloride 0.9% 100 ml @ 10 mls/hr IV Q10H [facility] Rx#:[id number] Piperacillin Sodium/ 50 Tazobact 2.25 gm In Sodium Chloride 0.9% 50 ml @ 100 mls/hr IV Q6HR [facility] Rx#:[id number] Tube Feeding 110 420 Other 550 Output: Urine 350 250 Other: # Bowel Movements 0 0 Stool Characteristics Soft Brown Green Weight Source Bedscale Bedscale Active Medications: Current Medications Acetaminophen (Tylenol) 325 mg GT Q4HR PRN PRN Reason: Pain or Fever >101 Stop: 09/05/18 19:00 Last Admin: 07/07/18 19:43 Dose: 325 mg Chlorhexidine Gluconate (Peridex) 15 ml MM 08,1999 [facility] Stop: 09/07/18 19:59 Last Admin: 07/10/18 08:51 Dose: 15 ml Diltiazem HCl (Cardizem) 30 mg GT Q8H [facility] Stop: 09/05/18 19:14 Last Admin: 07/10/18 11:53 Dose: 30 mg Fluconazole (Diflucan) 100 mg GT DAILY [facility] Stop: 09/08/18 08:59 Last Admin: 07/10/18 08:51 Dose: 100 mg Hydralazine HCl (Apresoline 20 Mg/Ml) 10 mg IV Q4HR PRN PRN Reason: SBP >150 MMHG Stop: 09/05/18 07:48 Last Admin: 07/10/18 11:10 Dose: 10 mg Pantoprazole Sodium 80 mg/ (Sodium Chloride) 100 mls @ 10 mls/hr IV Q10H [facility] Stop: 09/05/18 08:59 Last Admin: 07/10/18 10:25 Dose: 10 mls/hr Dextrose (D5w) 1,000 mls @ 100 mls/hr IV .Q10H [facility] Stop: 09/07/18 19:14 Last Admin: 07/10/18 10:22 Dose: 100 mls/hr Piperacillin Sod/Tazobactam (Sod 2.25 gm/ Sodium Chloride) 50 mls @ 100 mls/hr IV Q6HR [facility] Stop: 09/08/18 05:59 Last Admin: 07/10/18 12:46 Dose: 100 mls/hr Levetiracetam (Keppra) 500 mg PO Q12H [facility] Stop: 09/05/18 19:14 Last Admin: 07/10/18 06:42 Dose: 500 mg Levothyroxine Sodium 0.1 mg/ (Levothyroxine Sodium 0.05 mg) 0.15 mg PO QDAC [facility] Stop: 09/06/18 07:29 Last Admin: 07/10/18 06:43 Dose: 0.15 mg Lorazepam (Ativan) 1 mg IVP Q4HR PRN; Protocol PRN Reason: Agitation Stop: 09/05/18 07:47 Last Admin: 07/10/18 11:53 Dose: 1 mg Ondansetron HCl (Zofran) 4 mg IV Q6HR PRN PRN Reason: Vomiting Stop: 09/05/18 02:27 Last Admin: 07/07/18 06:48 Dose: 4 mg General: Alert, Other (On Vent) HEENT: Atraumatic, Mucous membr. moist/pink Neck: Supple, +2 carotid pulse wo bruit (scattered rhonchi) Cardiovascular: Regular rate, Normal S1, Normal S2 Lungs: Other (Rhonchi) Abdomen: Bowel sounds, Soft, Other (G tube and ventral Hernia), no Tender Extremities: Edema (min bipedal edema) Neurological: Sensation intact Skin: no Rash Psych/Mental Status: Mood NL - Procedures Procedures: Procedures Procedure Code Date CHANGE FEEDING DEVICE IN UP INTEST TRACT, RN GASTROENTEROLOGY APPROACH [id number] 07/07/18 RESPIRATORY VENTILATION, 24-96 CONSECUTIVE HOURS [id number] 07/07/18 Assessment/Plan - Assessment Assessment: EVNKAT UGI Bleed 2/2 Erosive Esophagitis, Severe Gastritis Anemia 2/2 Fe Def, GI Bleed on CD Ess Htn CHF Epilepsy RFVD S/P CVA - Plan Plan: Lab - Result Diagrams 07/10/18 04:40 07/10/18 04:40 Current Medications Acetaminophen (Tylenol) 325 mg GT Q4HR PRN PRN Reason: Pain or Fever >101 Stop: 09/05/18 19:00 Last Admin: 07/07/18 19:43 Dose: 325 mg Chlorhexidine Gluconate (Peridex) 15 ml MM 0800,1999 [facility] Stop: 09/07/18 19:59 Last Admin: 07/10/18 08:51 Dose: 15 ml Diltiazem HCl (Cardizem) 30 mg GT Q8H [facility] Stop: 09/05/18 19:14 Last Admin: 07/10/18 11:53 Dose: 30 mg Fluconazole (Diflucan) 100 mg GT DAILY [facility] Stop: 09/08/18 08:59 Last Admin: 07/10/18 08:51 Dose: 100 mg Hydralazine HCl (Apresoline 20 Mg/Ml) 10 mg IV Q4HR PRN PRN Reason: SBP >150 MMHG Stop: 09/05/18 07:48 Last Admin: 07/10/18 11:10 Dose: 10 mg Pantoprazole Sodium 80 mg/ (Sodium Chloride) 100 mls @ 10 mls/hr IV Q10H [facility] Stop: 09/05/18 08:59 Last Admin: 07/10/18 10:25 Dose: 10 mls/hr Dextrose (D5w) 1,000 mls @ 100 mls/hr IV .Q10H [facility] Stop: 09/07/18 19:14 Last Admin: 07/10/18 10:22 Dose: 100 mls/hr Piperacillin Sod/Tazobactam (Sod 2.25 gm/ Sodium Chloride) 50 mls @ 100 mls/hr IV Q6HR [facility] Stop: 09/08/18 05:59 Last Admin: 07/10/18 12:46 Dose: 100 mls/hr Levetiracetam (Keppra) 500 mg PO Q12H [facility] Stop: 09/05/18 19:14 Last Admin: 07/10/18 06:42 Dose: 500 mg Levothyroxine Sodium 0.1 mg/ (Levothyroxine Sodium 0.05 mg) 0.15 mg PO QDAC [facility] Stop: 09/06/18 07:29 Last Admin: 07/10/18 06:43 Dose: 0.15 mg Lorazepam (Ativan) 1 mg IVP Q4HR PRN; Protocol PRN Reason: Agitation Stop: 09/05/18 07:47 Last Admin: 07/10/18 11:53 Dose: 1 mg Ondansetron HCl (Zofran) 4 mg IV Q6HR PRN PRN Reason: Vomiting Stop: 09/05/18 02:27 Last Admin: 07/07/18 06:48 Dose: 4 mg Lab - Result Diagrams 07/10/18 04:40 07/10/18 04:40 Kidney fnc remain stable w/ BUN/CR of 35/1.9 continue to monitor Hgb/Hct F/U electrolytes, cbc Renal US increased echogenicity, medical renal Ds Nutritional Asmnt/Malnutr-PDOC - Dietary Evaluation Malnutrition Findings (Please click <Entered> for more info): Nutritional Asmnt/Malnutrition Start: 07/08/18 16: 58 Text: Status: Complete Freq: Protocol: Document 07/08/18 16:58 LCHENG (Rec: 07/08/18 17:12 LCHENG [email or web address]) Nutritional Asmnt/Malnutrition Patient General Information Nutritional Screening High Risk Consult Diagnosis vomiting, anemia, respiratory failure Pertinent Medical Hx/Surgical Hx HTN, CHF, CVA/TIA, seizure, right breast CA, PEG/Gtube Subjective Information Pt was admitted d/t coffee ground emesis. Pt seen in bed, trach to vent. Pt is on GT suction noted. TF not intiated at this time. RN reported pt will have EGD tommorrow. Consult received for admission glucose 194, NPO. Current Diet Order/ Nutrition Support NPO Pertinent Medications D5-0.45ns, levathyroxine, zofran Pertinent Labs 07/08 Na 146, Cl 112, BUN 35, Cr 1.7, glucose 109, ALb 2.9 5/12 Cl 109, BUN 32, Glucose 151, Alb 3.4 Nutritional Hx/Data Height 1.65 m Height (Calculated Centimeters) 165.1 Current Weight (lbs) 82.1 kg Weight (Calculated Kilograms) 82.1 Weight (Calculated Grams) 84924.2 [place] Body Weight 125 Body Mass Index (BMI) 30.1 Weight Status Obese GI Symptoms GI Symptoms Nausea Vomitting Last BM 07/07 Usual diet at home Novasource Renal at 40ml/hr x 20hr at care facility per pt chart Skin Integrity/Comment: IAD TO GLUTEAL FOLD, BUTTOCKS AND POSTERIOR THIGH rash to upper back , nech, R/L arms, abdomen Kayden 12. Estimated Nutritional Goals BEE in Kcals: Adj wt of IBW Calories/Kcals/Kg 23-27 Kcals Calculated 6990-5396 Protein: Adj wt of IBW Protein g/k Protein Calculated 63 Fluid: ml 1449-1701ml (1ml/kcal) Nutritional Problem 1. Problem Problem altered GI function Etiology possible GI bleeding Signs/Symptoms: coffee ground emesis and pt on NPO status Malnutrition Alert Is there a minimum of two criteria No selected? Query Text:Check all the applicable criteria. A minimum of two criteria are recommended for diagnosis of either severe or non-severe malnutrition. Malnutrition Related to Morbid Obesity Malnutrition related to morbid obesity No Intervention/Recommendation Comments 1. Monitor NPO status. 2. If TF initiated when medically appropriate, recommend Glucerna 1.2 at goal rate of 50ml/hr countinuos to provide 1440kcal, 72g protein and 966ml free water, meeting 100% of nutritional needs. 3. Monitor GI function, wt, labs and skin integrity 4. F/U as high risk in 2 days Expected Outcomes/Goals Expected Outcomes/Goals 1. Pt to meet at least 90% of nutritional needs via nutrition support with tolerance 2. Wt stability, GI function to improve, skin to remain intact, labs to approach WNL.
[2018-07-10] MEDS ORDERED: Mag Sulfate 2gm/50mL Premix 2 GM/50 ML BAG IV ONE (14:00)
[2018-07-10 14:05] LABS: EOSINOPHILS SMEAR COUNT NONE SEEN (NONE SEEN)
[2018-07-10 14:06] LABS: EOSINOPHIL SMEAR SOURCE URINE
--- NOTE | 2018-07-10 22:27 | Progress Notes ---
DATE: SUBJECTIVE: The patient appears to be doing okay, comfortable, minimal secretions. OBJECTIVE: VITAL SIGNS: Temperature 98.6, pulse is 100, respiration is 20, blood pressure 160/75, saturation 97% to 100%. CHEST: Good breath sounds, no wheezing, no crackles. HEART: Regular rate and rhythm. ABDOMEN: Soft. EXTREMITIES: No edema. LABORATORY DATA: WBC is 8.3, hemoglobin 8.9, hematocrit 26.0, platelets is 292. Sodium 139, potassium 3.8, BUN 35, creatinine 1.9. IMPRESSION: 1. Respiratory failure. 2. Weakness. 3. Pneumonia. 4. Urinary tract infection. 5. Dysphagia. 6. Dementia. PLAN: 1. Continue antibiotics. 2. Nebulizer. 3. Antibiotics. 4. Supportive care. JOB# [id number]
[2018-07-11] MEDS ORDERED: Pantoprazole 40 mg/Packet GT SCH (09:00)
== END 2018-07-10 17:57 | DRG 208 ==
LOC: ER 23:35 → ICU 07-07 02:15
PROVIDERS: ADMIT Internal Medicine; ATTEND Internal Medicine
PROC: 5A1945Z Respiratory Ventilation, 24-96 Consecutive Hours (ICD-10-PCS; principal; 2018-07-07)
PROC: 30233N1 Transfusion of Nonautologous Red Blood Cells into Peripheral Vein, Percutaneous Approach (ICD-10-PCS; 2018-07-08)
PROC: 0DB68ZX Excision of Stomach, Via Natural or Artificial Opening Endoscopic, Diagnostic (ICD-10-PCS; 2018-07-09)
PROC: 0D20XUZ Change Feeding Device in Upper Intestinal Tract, External Approach (ICD-10-PCS; 2018-07-09)
DX: J69.0 Pneumonitis due to inhalation of food and vomit (principal); K22.11 Ulcer of esophagus with bleeding; J96.20 Acute and chronic respiratory failure, unspecified whether with hypoxia or hypercapnia; K29.71 Gastritis, unspecified, with bleeding; J96.10 Chronic respiratory failure, unspecified whether with hypoxia or hypercapnia; K56.7 Ileus, unspecified; Z99.11 Dependence on respirator [ventilator] status; N39.0 Urinary tract infection, site not specified; N17.9 Acute kidney failure, unspecified; K92.0 Hematemesis; I11.0 Hypertensive heart disease with heart failure; I50.9 Heart failure, unspecified; G40.909 Epilepsy, unspecified, not intractable, without status epilepticus; R13.10 Dysphagia, unspecified; M19.90 Unspecified osteoarthritis, unspecified site; I25.10 Atherosclerotic heart disease of native coronary artery without angina pectoris; F03.90 Unspecified dementia, unspecified severity, without behavioral disturbance, psychotic disturbance, mood disturbance, and anxiety; D63.8 Anemia in other chronic diseases classified elsewhere; E03.9 Hypothyroidism, unspecified; Z86.73 Personal history of transient ischemic attack (TIA), and cerebral infarction without residual deficits; Z85.3 Personal history of malignant neoplasm of breast; Z88.8 Allergy status to other drugs, medicaments and biological substances
CPT/HCPCS: 36415-UA; 36600-90; 71045-TC; 74000-TC; 76770-TC; 80053-TC; 80061-TC; 80299-90; 81001-TC; 81003-TC; 81015-TC; 82043-90; 82570-TC; 82803-TC; 83036-90; 83540-90; 83550-90; 83735-TC; 83880-TC; 84100-TC; 84300-TC; 84443-TC; 84484-TC; 85007-TC; 85025-TC; 85610-TC; 85730-TC; 86592-TC; 86850-TC; 86900-TC; 86901-TC; 86922-TC; 87070; 87086-90; 87338-TC; 93005; 94002; 94003; C9113; J0278; J0360; J1940; J1956; J2060; J2405; J2543; J3475; J7030; J7040; J7070; P9016; X6024; Z7610